=== PATIENT | male | born 1980 | race Caucasian/White ===

== ENCOUNTER 2021-06-01 22:45 | Inpatient (IN) | payer OTHER, SELFPAY ==
[2021-06-01 22:46] VITALS: BP 88/47; PULSE 63; RESP 25; O2SAT 95
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
[2021-06-01] MEDS: sodium chloride 0.9% 1,000 ML 999 ML IV (22:55)
[2021-06-01 23:00] LABS: Basophils # 0.1 10^3/uL (0.0-0.1); Basophils % 0.7 %; Eosinophils # 0.3 10^3/uL (0.0-0.8); Eosinophils % 3.9 %; Hematocrit 42.6 % (42.0-52.0); Hemoglobin 14.3 g/dL (11.7-16.6); Lymphocytes # 3.7 10^3/uL (0.8-4.8); Lymphocytes % 48.5 %; Mean Corpuscular HGB Conc 33.6 g/dL (30.0-36.0); Mean Corpuscular Hemoglobin 30.2 pg (28.0-34.0); Mean Corpuscular Volume 89.9 fl (80-94); Mean Platelet Volume 9.9 fL (7.4-10.4); Monocytes # 0.4 10^3/uL (0.2-0.9); Neutrophils # 3.12 10^3/uL (1.8-7.7); Nucleated Red Blood Cells % 0 %; Platelet Count 267 10^3/cmm (130-400); Red Blood Count 4.74 10^6/uL (4.1-5.3); White Blood Count 7.6 10^3/uL (4.0-10.0)
--- NOTE | 2021-06-01 23:02 | XRR_ITS ---
PROCEDURE INFORMATION: Exam: XR Chest Exam date and time: 06/01/2021 11:02 PM Age: 41 years old Clinical indication: Device placement; Ett placement (vent status); Patient HX: Check S/P ett placement. ; Additional info: Post intubation TECHNIQUE: Imaging protocol: XR of the chest. Views: 1 view. COMPARISON: CR XR chest 1V portable [id number] 2021-06-01 22:51 FINDINGS: Tubes, catheters and devices: Endotracheal tube tip in mid trachea. Lungs: Left lung base subsegmental atelectasis. Pleural spaces: Unremarkable. No pleural effusion. No pneumothorax. Heart/Mediastinum: Unremarkable. No cardiomegaly. Bones/joints: Unremarkable. XR/XR chest 1V portable [id number] IMPRESSION: Endotracheal tube tip in mid trachea.
[2021-06-01 23:14] LABS: Alanine Aminotransferase 73 U/L (0-41); Albumin Level 3.9 g/dL (3.5-5.2); Alcohol Level 190 mg/dL (0-10); Alkaline Phosphatase 105 IU/L (40-130); Anion Gap 18.1 (5-19); Aspartate Amino Transferase 51 U/L (0-40); Blood Urea Nitrogen 9 mg/dL (6-20); Calcium 8.1 mg/dL (8.5-10.5); Carbon Dioxide 23 mmol/L (22-29); Chloride 102 mmol/L (98-107); Globulin 3.3 g/dL (1.3-4.6); Glomerular Filtration Rate 74.1 mL/min (90-130); Glucose 122 mg/dL (65-115); Osmolality Calculated 290 mOsm/kg (285-295); Potassium 3.1 mmol/L (3.5-5.1); Sodium 140 mmol/L (136-145); Total Bilirubin 0.3 mg/dL (0.15-1.2); Total Protein 7.2 g/dL (6.6-8.7)
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
[2021-06-01 23:40] VITALS: RESP 14
[2021-06-01] MEDS: ceFAZolin 1,000 mg SDV 1000 MG IVP (23:48)
[2021-06-01] MEDS: tetanus-dipt-pertussis 0.5 mL SDV IM (23:48)
[2021-06-02] VITALS (89 sets, daily range): BP systolic 53–147; BP diastolic 34–109; PULSE 60–145; RESP 14–26; TEMP 36.7–37.1; O2SAT 93–100
[2021-06-02 00:29] LABS: INR 1.15 (0.8-1.2)
[2021-06-02 00:49] LABS: ABG PCO2 46.5 mmHg (35-45); Alveolar-Arterial Oxygen Gradi 71.9 mmHg (5-10); Arterial Blood Gas Hematocrit 38.4 % (42-52); Blood Gas Operator Identificat JB; Blood Gas Sample Type Arterial; Carboxyhemoglobin 0.5 %THgb (0.4-20.1); HGB O2 Sat 94.4 % (95-100); Ionized Calcium Level - ABG 1.5 mmol/L (1.1-1.4); Oxygen Device VENT; Oxygen Saturation ABG 95.9; PO2 ABG 93.6 mmHg (80.0-100.0); Potassium Level - ABG 3.7 mmol/L (3.5-5.0); Total Hemoglobin 12.5 g/dL (14-18)
[2021-06-02 00:50] LABS: ABG PH Result 7.12 (7.35-7.45)
[2021-06-02 01:11] LABS: Lactate (Lactic Acid level) 7.2 mmol/L (0.5-2.2)
--- NOTE | 2021-06-02 01:16 | XRR_ITS ---
PROCEDURE INFORMATION: Exam: XR Abdomen Exam date and time: 06/02/2021 1:16 AM Age: 41 years old Clinical indication: Screening exam; Post surgical status; Emergency exploratory with splenectomy. ; Patient HX: Sponge count check immediate S/P exploratory surgery with splenectomy. ; Additional info: Portable for sponge count TECHNIQUE: Imaging protocol: XR of the abdomen. Views: Frontal supine view of the abdomen. 1 View. COMPARISON: 1. CT chest abd pel w con* 2021-06-01 23:22 2. CR XR chest 1V portable [id number] 2021-06-01 23:02 3. CR XR chest 1V portable [id number] 2021-06-01 22:51 FINDINGS: Tubes, catheters and devices: Drainage catheter in the left upper abdomen. Oral gastric tube tip and sidehole are within the stomach. A balloon bladder catheter is present. Right groin central venous catheter tip at S1. Lungs: Left lung base subsegmental atelectasis. Gastrointestinal tract: Normal. No bowel dilation. Intraperitoneal space: Gas foci in the left upper abdomen. Splenectomy. Bones/joints: Unremarkable. XR/XR abdomen 1V* [id number] IMPRESSION: Drainage catheter in the left upper abdomen. No visible sponges. Expected postop splenectomy following trauma.
--- NOTE | 2021-06-02 01:34 | ANES.PREANE2 ---
Pre-Anesthetic Assessment Pre-Anesthetic Assessment: Height/Weight: Weight 108.862 kg Pulse Resp BP Pulse Ox 63 14 88/47 95 06/01/21 22:46 06/01/21 23:40 06/01/21 22:46 06/01/21 22:46 Proposed Procedure: Operation Date: 06/02/21 00:00 Proposed Procedures p Exploratory Laparotomy(Not Applicable) - Billy Salazar MD Was Beta Eula taken within 24 hours: N/A Was Clonidine taken within 24 hours: N/A Social: Social History: Alcohol Exam: Additional Exam Findings (including area of procedure): Sedated and intubated from ED Airway: Additional comments: ETT + ETCO2 CV/HEM: Comments: Hypotensive, recieved 6 units PRBC in ED Metabolic: Metabolic: Morbid obesity Anesthetic Plan: ASA status: 4E Anesthesia: General Other: CVL (placed in ED, right groin), A.line Risk of > 500 ml blood loss (7ml/kg in children): Yes, adequate IV access and fluids planned Data Anesthesia CBC & Chem 7: 06/01/21 22:54 06/01/21 22:54 Other Labs: Laboratory Results - last 48 hr 06/01/21 06/01/21 06/01/21 22:54 22:54 23:40 WBC 7.6 RBC 4.74 Hgb 14.3 Hct 42.6 MCV 89.9 MCH 30.2 MCHC 33.6 RDW 12.0 L Plt Count 267 MPV 9.9 Neut % (Auto) 41.0 Lymph % (Auto) 48.5 [place] % (Auto) 5.0 Eos % (Auto) 3.9 Baso % (Auto) 0.7 Neut # (Auto) 3.12 Lymph # (Auto) 3.7 [place] # (Auto) 0.4 Eos # (Auto) 0.3 Baso # (Auto) 0.1 Nucleated RBC % (auto) 0 Nucleated RBCs # 0.0 PT INR Specimen Type ABG pH ABG pCO2 ABG pO2 ABG HCO3 ABG O2 Saturation ABG Base Excess Radames Test A-a O2 Gradient Hematocrit Hgb O2 Saturation Carboxyhemoglobin Methemoglobin Total Hemoglobin Ionized Calcium O2 Delivery Device FiO2 Zipper Machine Operator ID Sodium 140 Potassium 3.1 L Chloride 102 Carbon Dioxide 23 Anion Gap 18.1 BUN 9 Creatinine 1.1 GFR Calculation 74.1 L Glucose 122 H Calculated Osmolality 290 Lactate Calcium 8.1 L Total Bilirubin 0.3 AST 51 H ALT 73 H Alkaline Phosphatase 105 Total Protein 7.2 Albumin 3.9 Globulin 3.3 Ethyl Alcohol 190 H Blood Type A Positive Rho(D) Type Positive Antibody Screen Negative Crossmatch See Detail 06/01/21 06/02/21 06/02/21 Unknown 00:04 00:04 WBC RBC Hgb Hct MCV MCH MCHC RDW Plt Count MPV Neut % (Auto) Lymph % (Auto) [place] % (Auto) Eos % (Auto) Baso % (Auto) Neut # (Auto) Lymph # (Auto) [place] # (Auto) Eos # (Auto) Baso # (Auto) Nucleated RBC % (auto) Nucleated RBCs # PT 15.00 H INR 1.15 Specimen Type ABG pH ABG pCO2 ABG pO2 ABG HCO3 ABG O2 Saturation ABG Base Excess Radames Test A-a O2 Gradient Hematocrit Hgb O2 Saturation Carboxyhemoglobin Methemoglobin Total Hemoglobin Ionized Calcium O2 Delivery Device FiO2 Zipper Machine Operator ID Sodium Potassium Chloride Carbon Dioxide Anion Gap BUN Creatinine GFR Calculation Glucose Calculated Osmolality Lactate Cancelled 7.2 H* Calcium Total Bilirubin AST ALT Alkaline Phosphatase Total Protein Albumin Globulin Ethyl Alcohol Blood Type Rho(D) Type Antibody Screen Crossmatch 06/02/21 00:35 WBC RBC Hgb Hct MCV MCH MCHC RDW Plt Count MPV Neut % (Auto) Lymph % (Auto) [place] % (Auto) Eos % (Auto) Baso % (Auto) Neut # (Auto) Lymph # (Auto) [place] # (Auto) Eos # (Auto) Baso # (Auto) Nucleated RBC % (auto) Nucleated RBCs # PT INR Specimen Type Arterial ABG pH 7.12 L* ABG pCO2 46.5 H ABG pO2 93.6 ABG HCO3 15.0 L ABG O2 Saturation 95.9 ABG Base Excess -14.0 L Radames Test N/a A-a O2 Gradient 71.9 H Hematocrit 38.4 L Hgb O2 Saturation 94.4 L Carboxyhemoglobin 0.5 Methemoglobin 1.0 Total Hemoglobin 12.5 L Ionized Calcium 1.5 H O2 Delivery Device Vent FiO2 100.0 Zipper Machine Operator ID Philip Sodium 140.0 Potassium 3.7 Chloride Carbon Dioxide Anion Gap BUN Creatinine GFR Calculation Glucose 245.0 H Calculated Osmolality Lactate Calcium Total Bilirubin AST ALT Alkaline Phosphatase Total Protein Albumin Globulin Ethyl Alcohol Blood Type Rho(D) Type Antibody Screen Crossmatch Cardiac Studies: No Data to Display
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
--- NOTE | 2021-06-02 02:14 | PC.NURSE ---
pt arrived at [facility] from [facility] with no iv access, no c-collar, and only zofran given. pt refused all of interventions offered by ems. pt had vomit on his [place] and shirt. pt was combative when it came to his care, ex pt pulled off c collar we placed, pt was pulling arm while we started ivs. pt did not want to sit still for xrays. so dr briones ordered 20 atomadate, and 100 of succs, at 2258 meds were pushed and intubated started. positive color change on co2 detector and measured 25 @ the lip. also were unable to obtain a pressure on pt initially. pt intial pressures were 90's / 50's. 2 liters of fluid/ during ct brought blood pressure to 108/76. fentanyl drip started at this time at 50 mcg/hr per protocol. decision was made based on pt bp that we would not start propofol and instead give 200 mg of ketamine. pt pressures then began going back down to 90's / 50's then 70'/40's. at this time it was decided to start blood. pt was given 4 units of o neg and then 2 units of pt specific, one unit of ffp. catheter placed. urine return. clear, yellow- specimen sent to lab. og placed by curtis florence. it was determined during bp checks pt was not stable enough for transfer. pt central line was initiated. pt taken to or by this nurse, eliana miles rn, glen rn, and simba RT
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
--- NOTE | 2021-06-02 02:38 | PC.NURSE ---
Patient received from OR at 0200. VSS, bedside report received from OR staff. Patient opens eyes at this time, moves all extremities. Not feeling commands at this time. Dr. Ladd bedside and orders received.
--- NOTE | 2021-06-02 02:41 | XRR_ITS ---
PROCEDURE INFORMATION: Exam: XR Chest Exam date and time: 06/02/2021 2:41 AM Age: 41 years old Clinical indication: Shortness of breath; Prior surgery; Surgery date: Post-operative (0-2 days); Surgery type: Emergency splenectomy. ; Patient HX: F/u for intubation. TECHNIQUE: Imaging protocol: XR of the chest. Views: 1 view. COMPARISON: CT chest abd pel w con* 06/01/2021 11:22 PM FINDINGS: Tubes, catheters and devices: Stable endotracheal tube with tip over the distal trachea, 1 cm proximal to the venus. Enteric tube tip is over the fundus of the stomach (proximal stomach). Lungs: Unremarkable. No consolidation. Pleural spaces: Unremarkable. No pleural effusion. No pneumothorax. Heart/Mediastinum: Unremarkable. No cardiomegaly. Bones/joints: Unremarkable. XR/XR chest 1V portable [id number] IMPRESSION: 1. Stable endotracheal tube with tip over the distal trachea, 1 cm proximal to the venus. 2. Enteric tube tip is over the fundus of the stomach (proximal stomach).
[2021-06-02 03:06] LABS: Glucose Point of Care 128 mg/dL (70-110)
[2021-06-02] MEDS: D5-NS 0.45% + KCL 20 mEq 20 MEQ/1,000 ML BAG 100 MEQ IV ×3 (03:21→22:46)
[2021-06-02] MEDS: piperacillin-tazobactam 3.375 GM in sodium chloride 0.9% (plus) 50 ML IV ×2 (03:31→16:20)
[2021-06-02 03:47] LABS: ABG PCO2 33.2 mmHg (35-45); ABG PH Result 7.32 (7.35-7.45); Arterial Blood Gas Hematocrit 36.2 % (42-52); Base Excess ABG -7.9 mmol/L (-2.0-2.0); Blood Gas Operator Identificat JB; Blood Gas Sample Type Arterial; Blood Gas Tidal Volume 0.55; HCO3 ABG 17.2 mmol/L (22-26); Oxygen Device VENT
[2021-06-02 06:11] LABS: Lactate (Lactic Acid level) 2.2 mmol/L (0.5-2.2)
[2021-06-02 06:12] LABS: Alanine Aminotransferase 43 U/L (0-41); Albumin Level 2.9 g/dL (3.5-5.2); Alkaline Phosphatase 57 IU/L (40-130); Aspartate Amino Transferase 43 U/L (0-40); Blood Urea Nitrogen 8 mg/dL (6-20); Calcium 6.7 mg/dL (8.5-10.5); Carbon Dioxide 14 mmol/L (22-29); Chloride 114 mmol/L (98-107); Globulin 1.8 g/dL (1.3-4.6); Glomerular Filtration Rate 107.1 mL/min (90-130); Glucose 128 mg/dL (65-115); Osmolality Calculated 300 mOsm/kg (285-295); Sodium 145 mmol/L (136-145); Total Bilirubin 0.8 mg/dL (0.15-1.2); Total Protein 4.7 g/dL (6.6-8.7)
[2021-06-02 06:34] LABS: Anion Gap 21.1 (5-19); Potassium 4.1 mmol/L (3.5-5.1)
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
[2021-06-02 07:35] LABS: Basophils % 0.2 %; Hemoglobin 10.4 g/dL (11.7-16.6); Lymphocytes # 1.7 10^3/uL (0.8-4.8); Lymphocytes % 13.2 %; Mean Corpuscular HGB Conc 34.7 g/dL (30.0-36.0); Mean Corpuscular Hemoglobin 28.8 pg (28.0-34.0); Mean Corpuscular Volume 83.1 fl (80-94); Mean Platelet Volume 10.6 fL (7.4-10.4); Monocytes % 7.9 %; Neutrophils # 10.25 10^3/uL (1.8-7.7); Nucleated Red Blood Cells % 0 %; Platelet Count 183 10^3/cmm (130-400); Red Blood Count 3.61 10^6/uL (4.1-5.3); Red Cell Distribution Width 15.2 % (12.1-15.1); White Blood Count 13.1 10^3/uL (4.0-10.0)
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
[2021-06-02 07:48] LABS: INR 1.13 (0.8-1.2); Partial Thromboplastin Time 23.7 SECONDS (23.9-36.7)
[2021-06-02 07:56] LABS: Alanine Aminotransferase 39 U/L (0-41); Albumin Level 3.1 g/dL (3.5-5.2); Alkaline Phosphatase 58 IU/L (40-130); Blood Urea Nitrogen 9 mg/dL (6-20); Calcium 6.8 mg/dL (8.5-10.5); Carbon Dioxide 18 mmol/L (22-29); Chloride 111 mmol/L (98-107); Globulin 1.7 g/dL (1.3-4.6); Glomerular Filtration Rate 93.5 mL/min (90-130); Glucose 154 mg/dL (65-115); Osmolality Calculated 298 mOsm/kg (285-295); Sodium 143 mmol/L (136-145); Total Protein 4.8 g/dL (6.6-8.7)
[2021-06-02 08:13] LABS: Anion Gap 18.4 (5-19); Aspartate Amino Transferase 37 U/L (0-40); Potassium 4.4 mmol/L (3.5-5.1)
[2021-06-02] MEDS: sodium chloride 0.45% 1,000 ML 999 ML IV (08:23)
--- NOTE | 2021-06-02 08:43 | PC.PT ---
PT eval attempted. Hold at this time due to patient being unstable. Will monitor and attempt again tomorrow.
[2021-06-02] MEDS: sodium chloride 0.9% (100 ml) 100 ML 10 ML ×2 (09:31→09:46)
[2021-06-02] MEDS: sodium bicarbonate 8.4% 1 mEq/mL 50mL Syr 50 MEQ IVP (09:41)
[2021-06-02 09:45] LABS: ABG PCO2 44.6 mmHg (35-45); ABG PH Result 7.35 (7.35-7.45); Alveolar-Arterial Oxygen Gradi 13.7 mmHg (5-10); Arterial Blood Gas Hematocrit 22.3 % (42-52); Base Excess ABG -1.2 mmol/L (-2.0-2.0); Blood Gas Allen Test Pos; Blood Gas Operator Identificat BD; Blood Gas Sample Site ALINE; Blood Gas Sample Type Arterial; Blood Gas Tidal Volume 0.55; Carboxyhemoglobin 0.9 %THgb (0.4-20.1); HCO3 ABG 24.4 mmol/L (22-26); HGB O2 Sat 95.5 % (95-100); Methemoglobin 1.4 % (0.4-1.5); Oxygen Device VENT; Oxygen Saturation ABG 97.7; PO2 ABG 86.2 mmHg (80.0-100.0); Potassium Level - ABG 4.6 mmol/L (3.5-5.0); Total Hemoglobin 7.3 g/dL (14-18)
[2021-06-02] MEDS: phytonadione (ADULT) 10 mg/mL Ampule 1 mL SUBCUT (09:46)
[2021-06-02 10:33] LABS: ABG PH Result 7.41 (7.35-7.45); Alveolar-Arterial Oxygen Gradi 3.1 mmHg (5-10); Arterial Blood Gas Hematocrit 19.5 % (42-52); Base Excess ABG 3.9 mmol/L (-2.0-2.0); Blood Gas Allen Test Pos; Blood Gas Operator Identificat BD; Blood Gas Sample Site ALINE; Blood Gas Sample Type Arterial; Carboxyhemoglobin 1.2 %THgb (0.4-20.1); HCO3 ABG 28.8 mmol/L (22-26); HGB O2 Sat 94.2 % (95-100); Ionized Calcium Level - ABG 1.1 mmol/L (1.1-1.4); Methemoglobin 1.4 % (0.4-1.5); Oxygen Device VENT; Oxygen Saturation ABG 96.8; PO2 ABG 68.4 mmHg (80.0-100.0); Potassium Level - ABG 4.2 mmol/L (3.5-5.0); Total Hemoglobin 6.4 g/dL (14-18)
[2021-06-02 10:49] LABS: Partial Thromboplastin Time 32.3 SECONDS (23.9-36.7)
--- NOTE | 2021-06-02 10:51 | PC.NURSE ---
Patient acutely ill, nurse and nurses at bedside constantly titrating drips, hanging albumin, fluid boluses, and blood to maintain a blood pressure. Father and exwife in to see patient twice briefly. Doctors aware, and then at bedside also, and orders to go back to surgery. OR ney here and assisted nurses, doctor Salazar, and RT to take patient to OR AT [id number].
--- NOTE | 2021-06-02 11:19 | P.ANESUD_ITS ---
Pre-Anesthetic Update Pre-Anesthetic Assessment: Date of Surgery/Procedure: 06/02/21 Proposed Procedure: Operation Date: 06/02/21 00:00 Proposed Procedures p Exploratory Laparotomy(Not Applicable) - Billy Salazar MD Operation Date: 06/02/21 10:00 Proposed Procedures p Exploratory Laparotomy(Not Applicable) - Billy Salazar MD Any changes to Pre-Anesthetic Assessment?: Yes Labs Last 48hrs: Laboratory Results - last 48 hr 06/01/21 06/01/21 06/01/21 22:54 22:54 22:55 WBC 7.6 RBC 4.74 Hgb 14.3 Hct 42.6 MCV 89.9 MCH 30.2 MCHC 33.6 RDW 12.0 L Plt Count 267 MPV 9.9 Neut % (Auto) 41.0 Lymph % (Auto) 48.5 Dundy % (Auto) 5.0 Eos % (Auto) 3.9 Baso % (Auto) 0.7 Neut # (Auto) 3.12 Lymph # (Auto) 3.7 Dundy # (Auto) 0.4 Eos # (Auto) 0.3 Baso # (Auto) 0.1 Nucleated RBC % (a uto) 0 Nucleated RBCs # 0.0 PT INR APTT Specimen Type Sample Site ABG pH ABG pCO2 ABG pO2 ABG HCO3 ABG O2 Saturation ABG Base Excess Radames Test A-a O2 Gradient Hematocrit Hgb O2 Saturation Carboxyhemoglobin Methemoglobin Total Hemoglobin Ionized Calcium O2 Delivery Device FiO2 Tidal Volume PEEP Superintendent Police ID Sodium 140 Potassium 3.1 L Chloride 102 Carbon Dioxide 23 Anion Gap 18.1 BUN 9 Creatinine 1.1 GFR Calculation 74.1 L Glucose 122 H POC Glucose 128 H Calculated Osmolal ity 290 Lactate Calcium 8.1 L Total Bilirubin 0.3 Direct Bilirubin AST 51 H ALT 73 H Alkaline Phosphata se 105 Total Protein 7.2 Albumin 3.9 Globulin 3.3 Ethyl Alcohol 190 H Blood Type Rho(D) Type Antibody Screen Crossmatch 06/01/21 06/01/21 06/02/21 23:40 Unknown 00:04 WBC RBC Hgb Hct MCV MCH MCHC RDW Plt Count MPV Neut % (Auto) Lymph % (Auto) Dundy % (Auto) Eos % (Auto) Baso % (Auto) Neut # (Auto) Lymph # (Auto) Dundy # (Auto) Eos # (Auto) Baso # (Auto) Nucleated RBC % (a uto) Nucleated RBCs # PT 15.00 H INR 1.15 APTT Specimen Type Sample Site ABG pH ABG pCO2 ABG pO2 ABG HCO3 ABG O2 Saturation ABG Base Excess Radames Test A-a O2 Gradient Hematocrit Hgb O2 Saturation Carboxyhemoglobin Methemoglobin Total Hemoglobin Ionized Calcium O2 Delivery Device FiO2 Tidal Volume PEEP Superintendent [employer] ID Sodium Potassium Chloride Carbon Dioxide Anion Gap BUN Creatinine GFR Calculation Glucose POC Glucose Calculated Osmolal ity Lactate Cancelled Calcium Total Bilirubin Direct Bilirubin AST ALT Alkaline Phosphata se Total Protein Albumin Globulin Ethyl Alcohol Blood Type A Positive Rho(D) Type Positive Antibody Screen Negative Crossmatch See Detail 06/02/21 06/02/21 06/02/21 00:04 00:35 03:35 WBC RBC Hgb Hct MCV MCH MCHC RDW Plt Count MPV Neut % (Auto) Lymph % (Auto) Dundy % (Auto) Eos % (Auto) Baso % (Auto) Neut # (Auto) Lymph # (Auto) Dundy # (Auto) Eos # (Auto) Baso # (Auto) Nucleated RBC % (a uto) Nucleated RBCs # PT INR APTT Specimen Type Arterial Arterial Sample Site ABG pH 7.12 L* 7.32 L ABG pCO2 46.5 H 33.2 L ABG pO2 93.6 281.0 H ABG HCO3 15.0 L 17.2 L ABG O2 Saturation 95.9 ABG Base Excess -14.0 L -7.9 L Radames Test N/a N/a A-a O2 Gradient 71.9 H Hematocrit 38.4 L 36.2 L Hgb O2 Saturation 94.4 L Carboxyhemoglobin 0.5 Methemoglobin 1.0 Total Hemoglobin 12.5 L Ionized Calcium 1.5 H O2 Delivery Device Vent Vent FiO2 100.0 80.0 Tidal Volume 0.55 PEEP 8.0 Superintendent Police ID Philip Philip Sodium 140.0 Potassium 3.7 Chloride Carbon Dioxide Anion Gap BUN Creatinine GFR Calculation Glucose 245.0 H POC Glucose Calculated Osmolal ity Lactate 7.2 H* Calcium Total Bilirubin Direct Bilirubin AST ALT Alkaline Phosphata se Total Protein Albumin Globulin Ethyl Alcohol Blood Type Rho(D) Type Antibody Screen Crossmatch 06/02/21 06/02/21 06/02/21 03:55 03:55 03:55 WBC RBC Hgb Hct MCV MCH MCHC RDW Plt Count MPV Neut % (Auto) Lymph % (Auto) Dundy % (Auto) Eos % (Auto) Baso % (Auto) Neut # (Auto) Lymph # (Auto) Dundy # (Auto) Eos # (Auto) Baso # (Auto) Nucleated RBC % (a uto) Nucleated RBCs # PT INR APTT Specimen Type Sample Site ABG pH ABG pCO2 ABG pO2 ABG HCO3 ABG O2 Saturation ABG Base Excess Radames Test A-a O2 Gradient Hematocrit Hgb O2 Saturation Carboxyhemoglobin Methemoglobin Total Hemoglobin Ionized Calcium O2 Delivery Device FiO2 Tidal Volume PEEP Superintendent [employer] ID Sodium 145 Potassium 4.1 Chloride 114 H Carbon Dioxide 14 L Anion Gap 21.1 H BUN 8 Creatinine 0.8 GFR Calculation 107.1 Glucose 128 H POC Glucose Calculated Osmolal ity 300 H Lactate 2.2 Calcium 6.7 L Total Bilirubin 0.8 Direct Bilirubin 0.30 AST 43 H ALT 43 H Alkaline Phosphata se 57 Total Protein 4.7 L D Albumin 2.9 L Globulin 1.8 Ethyl Alcohol Blood Type A Positive Rho(D) Type Positive Antibody Screen Negative Crossmatch See Detail 06/02/21 06/02/21 06/02/21 07:18 07:18 07:18 WBC 13.1 H RBC 3.61 L Hgb 10.4 L Hct 30.0 L MCV 83.1 D MCH 28.8 MCHC 34.7 RDW 15.2 H Plt Count 183 D MPV 10.6 H Neut % (Auto) 78.0 Lymph % (Auto) 13.2 Dundy % (Auto) 7.9 Eos % (Auto) 0.0 Baso % (Auto) 0.2 Neut # (Auto) 10.25 H Lymph # (Auto) 1.7 Dundy # (Auto) 1.0 H Eos # (Auto) 0.0 Baso # (Auto) 0.0 Nucleated RBC % (a uto) 0 Nucleated RBCs # 0.0 PT 14.80 INR 1.13 APTT 23.7 L Specimen Type Sample Site ABG pH ABG pCO2 ABG pO2 ABG HCO3 ABG O2 Saturation ABG Base Excess Radames Test A-a O2 Gradient Hematocrit Hgb O2 Saturation Carboxyhemoglobin Methemoglobin Total Hemoglobin Ionized Calcium O2 Delivery Device FiO2 Tidal Volume PEEP Superintendent [employer] ID Sodium 143 Potassium 4.4 Chloride 111 H Carbon Dioxide 18 L Anion Gap 18.4 BUN 9 Creatinine 0.9 GFR Calculation 93.5 Glucose 154 H POC Glucose Calculated Osmolal ity 298 H Lactate Calcium 6.8 L Total Bilirubin 1.0 Direct Bilirubin AST 37 ALT 39 Alkaline Phosphata se 58 Total Protein 4.8 L Albumin 3.1 L Globulin 1.7 Ethyl Alcohol Blood Type Rho(D) Type Antibody Screen Crossmatch 06/02/21 06/02/21 08:34 10:30 WBC RBC Hgb Hct MCV MCH MCHC RDW Plt Count MPV Neut % (Auto) Lymph % (Auto) Dundy % (Auto) Eos % (Auto) Baso % (Auto) Neut # (Auto) Lymph # (Auto) Dundy # (Auto) Eos # (Auto) Baso # (Auto) Nucleated RBC % (a uto) Nucleated RBCs # PT 18.50 H INR 1.50 H APTT 32.3 Specimen Type Arterial Sample Site Elle ABG pH 7.35 ABG pCO2 44.6 ABG pO2 86.2 ABG HCO3 24.4 ABG O2 Saturation 97.7 ABG Base Excess -1.2 Radames Test Pos A-a O2 Gradient 13.7 H Hematocrit 22.3 L Hgb O2 Saturation 95.5 Carboxyhemoglobin 0.9 Methemoglobin 1.4 Total Hemoglobin 7.3 L Ionized Calcium 1.0 L O2 Delivery Device Vent FiO2 35.0 Tidal Volume 0.55 PEEP 6.0 Superintendent Police ID Bd Sodium 144.0 H Potassium 4.6 Chloride Carbon Dioxide Anion Gap BUN Creatinine GFR Calculation Glucose 174.0 H POC Glucose Calculated Osmolal ity Lactate Calcium Total Bilirubin Direct Bilirubin AST ALT Alkaline Phosphata se Total Protein Albumin Globulin Ethyl Alcohol Blood Type Rho(D) Type Antibody Screen Crossmatch Vitals: Temperature 98.7 F 06/02/21 09:37 Temperature Source Axillary 06/02/21 09:37 Pulse Rate 135 H 06/02/21 09:37 Pulse Rhythm 06/02/21 09:37 Pulse Strength 3+ Normal 06/02/21 08:00 Respiratory Rate 15 06/02/21 09:37 Respiratory Effort 06/02/21 09:37 Respiratory Depth Normal 06/02/21 09:37 Respiratory Patter n 06/02/21 09:23 Blood Pressure 53/34 06/02/21 09:37 Blood Pressure Fabiana n 40 06/02/21 09:37 Blood Pressure Pos ition Supine 06/02/21 06:32 Pulse Oximetry 96 06/02/21 09:37 Oxygen Delivery Me thod 06/02/21 03:30 Fraction of Inspir ed Oxygen 35 06/02/21 08:00 Sepsis Recent Feve r Within 48 Hours No 06/01/21 22:46 Exam: Additional Exam Findings (including area of procedure): Contd bleeding through the night, transfused 4 units RBC, intubated and sedated to OR Cardiac Studies: Echocardiogram Limited Views 06/02/21
--- NOTE | 2021-06-02 11:48 | XRR_ITS ---
PROCEDURE INFORMATION: Exam: XR Abdomen Exam date and time: 06/02/2021 11:48 AM Age: 41 years old Clinical indication: Screening exam; Post surgical status; Emergent surgery; Prior surgery; Surgery date: Post-operative (0-2 days); Patient HX: Needle count; Additional info: Emergent surgery, no count prior to incision, or 6 TECHNIQUE: Imaging protocol: XR of the abdomen. Views: Frontal supine view of the abdomen. 1 View. COMPARISON: CR XR abdomen 1V* [id number] 06/02/2021 1:20 AM FINDINGS: Tubes, catheters and devices: A nasogastric tube is present and projects on the stomach. Surgical drains are present in the left upper quadrant. A right femoral catheter is present with the tip projecting the right side of the sacrum. Multiple skin paul are present in the midline incision. No other significant foreign bodies or needles are seen. Gastrointestinal tract: Normal. No bowel dilation. Bones/joints: Unremarkable. XR/XR abdomen 1V* [id number] IMPRESSION: No acute abnormality. No unusual foreign bodies are seen.
--- NOTE | 2021-06-02 12:38 | XRR_ITS ---
PROCEDURE INFORMATION: Exam: XR Chest Exam date and time: 06/02/2021 12:38 PM Age: 41 years old Clinical indication: Device placement; Prior surgery; Additional info: Intubated TECHNIQUE: Imaging protocol: XR of the chest. Views: 1 view. COMPARISON: CR (CHEST, ) 06/02/2021 5:57 AM FINDINGS: Tubes, catheters and devices: An endotracheal tube and nasogastric tube project in satisfactory position. Lungs: There is hazy right upper lobe atelectasis or infiltrate. The other lung zones are clear. Pleural spaces: Unremarkable. No pleural effusion. No pneumothorax. Heart/Mediastinum: Unremarkable. No cardiomegaly. Bones/joints: Unremarkable. XR/XR chest 1V portable [id number] IMPRESSION: There is hazy right upper lobe atelectasis which is similar to the previous study.
[2021-06-02] MEDS: dexmedeTOMIDine 0.9 % NaCL 400 MCG/100 ML PREMIX 5.44 MCG IV (12:40)
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
--- NOTE | 2021-06-02 13:51 | ANE.PACU2 ---
Inpatient post-anesthesia follow up: Airway intact: Yes (ETT) Vital signs: Temperature 98.7 F Pulse Rate 135 Respiratory Rate 14 Blood Pressure 53/34 Pulse Oximetry 97 Oxygen Delivery Me thod Mechanical Ventila tion Oxygen Flow Rate Fraction of Inspir ed Oxygen 35 Hydration adequate: Yes Nausea and vomiting: No Pain level: Other (Unable to determine secondary to sedation) Additional Comments: Intubated/sedated to ICU, stable on pressors
[2021-06-02 13:54] LABS: Basophils % 0.2 %; Eosinophils # 0.1 10^3/uL (0.0-0.8); Eosinophils % 0.5 %; Hematocrit 32.8 % (42.0-52.0); Hemoglobin 11.4 g/dL (11.7-16.6); Lymphocytes # 1.3 10^3/uL (0.8-4.8); Lymphocytes % 10.4 %; Mean Corpuscular HGB Conc 34.8 g/dL (30.0-36.0); Mean Corpuscular Hemoglobin 30.2 pg (28.0-34.0); Mean Platelet Volume 10.8 fL (7.4-10.4); Monocytes # 1.4 10^3/uL (0.2-0.9); Monocytes % 11.3 %; Neutrophils # 9.78 10^3/uL (1.8-7.7); Nucleated Red Blood Cells % 0 %; Platelet Count 108 10^3/cmm (130-400); Red Blood Count 3.77 10^6/uL (4.1-5.3); Red Cell Distribution Width 14.2 % (12.1-15.1); White Blood Count 12.7 10^3/uL (4.0-10.0)
[2021-06-02 13:58] LABS: INR 1.24 (0.8-1.2)
[2021-06-02 14:08] LABS: Alanine Aminotransferase 31 U/L (0-41); Albumin Level 2.6 g/dL (3.5-5.2); Alkaline Phosphatase 44 IU/L (40-130); Anion Gap 14.5 (5-19); Aspartate Amino Transferase 40 U/L (0-40); Blood Urea Nitrogen 10 mg/dL (6-20); Calcium 6.4 mg/dL (8.5-10.5); Carbon Dioxide 20 mmol/L (22-29); Chloride 117 mmol/L (98-107); Globulin 1.5 g/dL (1.3-4.6); Glomerular Filtration Rate 82.8 mL/min (90-130); Glucose 128 mg/dL (65-115); Osmolality Calculated 305 mOsm/kg (285-295); Potassium 4.5 mmol/L (3.5-5.1); Sodium 147 mmol/L (136-145); Total Bilirubin 1.9 mg/dL (0.15-1.2); Total Protein 4.1 g/dL (6.6-8.7)
--- NOTE | 2021-06-02 14:34 | PC.NURSE ---
1238 patient returned form OR with OR staff and dr eaton. Orders to place back on fentanyl and precedex for pain and sedation, and may add Levophed back to keep a mean pressure of 65-70, but to keep comfortable. Started Precedex and Fentanyl as ordered, titrated pressures for appropriate mean.
[2021-06-02] MEDS: phenylephrine inj 25 MG in sodium chloride 0.9% 250 ML 36.36 MG IV (15:38)
[2021-06-02] MEDS: dexmedeTOMIDine 0.9 % NaCL 400 MCG/100 ML PREMIX 16.33 MCG IV (18:03)
[2021-06-02 19:47] LABS: Basophils % 0.2 %; Hematocrit 28.8 % (42.0-52.0); Lymphocytes # 1.2 10^3/uL (0.8-4.8); Lymphocytes % 8.3 %; Mean Corpuscular HGB Conc 34.7 g/dL (30.0-36.0); Mean Corpuscular Hemoglobin 29.7 pg (28.0-34.0); Mean Corpuscular Volume 85.5 fl (80-94); Mean Platelet Volume 10.7 fL (7.4-10.4); Monocytes # 1.6 10^3/uL (0.2-0.9); Monocytes % 11.1 %; Neutrophils # 11.63 10^3/uL (1.8-7.7); Neutrophils % 80.1 %; Nucleated Red Blood Cells % 0 %; Platelet Count 219 10^3/cmm (130-400); Red Blood Count 3.37 10^6/uL (4.1-5.3); Red Cell Distribution Width 14.2 % (12.1-15.1); White Blood Count 14.5 10^3/uL (4.0-10.0)
[2021-06-02 20:02] LABS: Alanine Aminotransferase 28 U/L (0-41); Albumin Level 2.7 g/dL (3.5-5.2); Alkaline Phosphatase 45 IU/L (40-130); Anion Gap 13.3 (5-19); Aspartate Amino Transferase 34 U/L (0-40); Blood Urea Nitrogen 10 mg/dL (6-20); Calcium 6.5 mg/dL (8.5-10.5); Carbon Dioxide 23 mmol/L (22-29); Chloride 113 mmol/L (98-107); Globulin 1.7 g/dL (1.3-4.6); Glomerular Filtration Rate 74.1 mL/min (90-130); Glucose 144 mg/dL (65-115); Osmolality Calculated 302 mOsm/kg (285-295); Potassium 4.3 mmol/L (3.5-5.1); Sodium 145 mmol/L (136-145); Total Bilirubin 0.9 mg/dL (0.15-1.2); Total Protein 4.4 g/dL (6.6-8.7)
[2021-06-03] VITALS (59 sets, daily range): BP systolic 90–127; BP diastolic 59–84; PULSE 60–76; RESP 14–16; TEMP 36.7; O2SAT 84–98
[2021-06-03] MEDS: piperacillin-tazobactam 3.375 GM in sodium chloride 0.9% (plus) 50 ML IV ×3 (01:36→17:46)
[2021-06-03] MEDS: dexmedeTOMIDine 0.9 % NaCL 400 MCG/100 ML PREMIX 16.33 MCG IV ×3 (01:41→18:12)
[2021-06-03 02:47] LABS: Basophils # 0.1 10^3/uL (0.0-0.1); Basophils % 0.3 %; Eosinophils # 0.1 10^3/uL (0.0-0.8); Eosinophils % 0.3 %; Hematocrit 26.9 % (42.0-52.0); Hemoglobin 9.4 g/dL (11.7-16.6); Lymphocytes # 1.7 10^3/uL (0.8-4.8); Lymphocytes % 7.9 %; Mean Corpuscular HGB Conc 34.9 g/dL (30.0-36.0); Mean Corpuscular Hemoglobin 29.7 pg (28.0-34.0); Mean Corpuscular Volume 85.1 fl (80-94); Mean Platelet Volume 11.2 fL (7.4-10.4); Monocytes # 2.2 10^3/uL (0.2-0.9); Monocytes % 10.6 %; Neutrophils # 16.91 10^3/uL (1.8-7.7); Neutrophils % 80.1 %; Nucleated Red Blood Cells % 0 %; Platelet Count 236 10^3/cmm (130-400); Red Blood Count 3.16 10^6/uL (4.1-5.3); Red Cell Distribution Width 14.4 % (12.1-15.1); White Blood Count 21.1 10^3/uL (4.0-10.0)
[2021-06-03 03:03] LABS: INR 1.12 (0.8-1.2)
[2021-06-03 03:04] LABS: Alanine Aminotransferase 25 U/L (0-41); Albumin Level 2.6 g/dL (3.5-5.2); Alkaline Phosphatase 82 IU/L (40-130); Anion Gap 10.9 (5-19); Aspartate Amino Transferase 28 U/L (0-40); Blood Urea Nitrogen 11 mg/dL (6-20); Calcium 6.6 mg/dL (8.5-10.5); Carbon Dioxide 24 mmol/L (22-29); Chloride 112 mmol/L (98-107); Glomerular Filtration Rate 93.5 mL/min (90-130); Glucose 142 mg/dL (65-115); Lactic Sepsis W/Reflex 1.6 mmol/L (0.5-2.2); Osmolality Calculated 298 mOsm/kg (285-295); Potassium 3.9 mmol/L (3.5-5.1); Sodium 143 mmol/L (136-145); Total Bilirubin 0.6 mg/dL (0.15-1.2); Total Protein 4.6 g/dL (6.6-8.7)
[2021-06-03 03:05] LABS: Partial Thromboplastin Time 29.9 SECONDS (23.9-36.7)
[2021-06-03 03:13] LABS: Fibrinogen 413 mg/dL (174-498)
[2021-06-03 03:34] LABS: Platelet Count 236 10^3/cmm (130-400)
--- NOTE | 2021-06-03 06:23 | PC.NURSE ---
Patients hemoglobin slowly dropping from previous shift. Will update surgeon during rounding. V/S stable
[2021-06-03 06:39] LABS: Basophils # 0.1 10^3/uL (0.0-0.1); Basophils % 0.3 %; Hemoglobin 8.9 g/dL (11.7-16.6); Lymphocytes # 1.8 10^3/uL (0.8-4.8); Lymphocytes % 7.9 %; Mean Corpuscular HGB Conc 35.6 g/dL (30.0-36.0); Mean Corpuscular Hemoglobin 29.9 pg (28.0-34.0); Mean Corpuscular Volume 83.9 fl (80-94); Mean Platelet Volume 11.1 fL (7.4-10.4); Monocytes # 2.1 10^3/uL (0.2-0.9); Monocytes % 9.3 %; Neutrophils # 18.31 10^3/uL (1.8-7.7); Neutrophils % 81.7 %; Nucleated Red Blood Cells % 0.1 %; Platelet Count 233 10^3/cmm (130-400); Red Blood Count 2.98 10^6/uL (4.1-5.3); Red Cell Distribution Width 14.4 % (12.1-15.1); White Blood Count 22.4 10^3/uL (4.0-10.0)
[2021-06-03] MEDS: D5-NS 0.45% + KCL 20 mEq 20 MEQ/1,000 ML BAG 100 MEQ IV (08:14)
--- NOTE | 2021-06-03 10:10 | XRR_ITS ---
PROCEDURE INFORMATION: Exam: XR Chest Exam date and time: 06/03/2021 10:10 AM Age: 41 years old Clinical indication: Device placement; Ett placement (vent status); Additional info: On vent TECHNIQUE: Imaging protocol: XR of the chest. Views: 1 view. COMPARISON: CR (CHEST, ) 06/02/2021 1:04 PM FINDINGS: Tubes, catheters and devices: An endotracheal tube and nasogastric tube project in satisfactory position. Lungs: There are worsening infiltrates and opacity of the left lung base. Pleural spaces: Unremarkable. No pleural effusion. No pneumothorax. Heart/Mediastinum: Unremarkable. No cardiomegaly. Bones/joints: Unremarkable. XR/XR chest 1V portable [id number] IMPRESSION: Worsening pneumonia in the left lung base.
[2021-06-03] MEDS: FUROsemide 10 mg/mL SDV 2mL 20 MG IVP (10:53)
[2021-06-03] MEDS: albumin 12.5 GM/50 ML VIAL IV (10:53)
[2021-06-03] MEDS: ipratropium-albuterol 3 mL Neb INHALATION ×4 (12:01→23:01)
--- NOTE | 2021-06-03 12:16 | PC.PT ---
Physical therapy evaluation on hold today per nursing request at this time.
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
[2021-06-04] VITALS (70 sets, daily range): BP systolic 85–142; BP diastolic 54–88; PULSE 75–106; RESP 16–22; TEMP 36.6; O2SAT 72–97
[2021-06-04] MEDS: morphine 4 mg/mL SDV 1 mL 3 MG IVP ×4 (00:07→06:09)
[2021-06-04] MEDS: piperacillin-tazobactam 3.375 GM in sodium chloride 0.9% (plus) 50 ML IV ×3 (02:11→17:42)
[2021-06-04] MEDS: dexmedeTOMIDine 0.9 % NaCL 400 MCG/100 ML PREMIX 10.89 MCG IV ×2 (02:58→15:28)
[2021-06-04] MEDS: ipratropium-albuterol 3 mL Neb INHALATION ×6 (03:38→23:41)
[2021-06-04 04:15] LABS: ABG PCO2 43.9 mmHg (35-45); ABG PH Result 7.38 (7.35-7.45); Alveolar-Arterial Oxygen Gradi 28.6 mmHg (5-10); Arterial Blood Gas Hematocrit 28.8 % (42-52); Base Excess ABG 0.5 mmol/L (-2.0-2.0); Blood Gas Allen Test Pos; Blood Gas Sample Site Radial, right; Blood Gas Sample Type Arterial; Carboxyhemoglobin 0.8 %THgb (0.4-20.1); HCO3 ABG 25.9 mmol/L (22-26); HGB O2 Sat 88.3 % (95-100); Ionized Calcium Level - ABG 1.1 mmol/L (1.1-1.4); Methemoglobin 0.6 % (0.4-1.5); Oxygen Device VENT; Oxygen Saturation ABG 89.5; PO2 ABG 51.1 mmHg (80.0-100.0); Potassium Level - ABG 3.4 mmol/L (3.5-5.0); Total Hemoglobin 9.4 g/dL (14-18)
[2021-06-04 04:32] LABS: Alanine Aminotransferase 24 U/L (0-41); Albumin Level 2.6 g/dL (3.5-5.2); Alkaline Phosphatase 111 IU/L (40-130); Anion Gap 14.5 (5-19); Aspartate Amino Transferase 26 U/L (0-40); Blood Urea Nitrogen 10 mg/dL (6-20); Calcium 6.9 mg/dL (8.5-10.5); Carbon Dioxide 23 mmol/L (22-29); Chloride 110 mmol/L (98-107); Globulin 2.2 g/dL (1.3-4.6); Glomerular Filtration Rate 93.5 mL/min (90-130); Glucose 117 mg/dL (65-115); Osmolality Calculated 298 mOsm/kg (285-295); Potassium 3.5 mmol/L (3.5-5.1); Sodium 144 mmol/L (136-145); Total Bilirubin 0.3 mg/dL (0.15-1.2); Total Protein 4.8 g/dL (6.6-8.7)
--- NOTE | 2021-06-04 06:00 | XRR_ITS ---
PROCEDURE INFORMATION: Exam: XR Chest Exam date and time: 06/04/2021 6:00 AM Age: 41 years old Clinical indication: Device placement; Ett placement (vent status); Prior surgery; Surgery date: 3-7 days post-operative; Surgery type: Splenectomy; Patient HX: F/u intubation. ; Additional info: Intubated TECHNIQUE: Imaging protocol: XR of the chest. Views: 1 view. COMPARISON: CR (CHEST, ) 06/03/2021 10:26 AM FINDINGS: Tubes, catheters and devices: Endotracheal tube is in satisfactory position. Feeding tube is in satisfactory position. Lungs: Persistent small left pleural effusion with adjacent atelectasis. Pneumonia should be excluded clinically. No pneumothorax. Pleural spaces: See Lungs finding. Heart/Mediastinum: Stable cardiomediastinal silhouette. Bones/joints: Unremarkable. XR/XR chest 1V portable [id number] IMPRESSION: Persistent small left pleural effusion with adjacent atelectasis. Pneumonia should be excluded clinically.
[2021-06-04 06:57] LABS: Basophils # 0.1 10^3/uL (0.0-0.1); Basophils % 0.4 %; Eosinophils # 0.2 10^3/uL (0.0-0.8); Eosinophils % 0.6 %; Hematocrit 24.5 % (42.0-52.0); Hemoglobin 8.4 g/dL (11.7-16.6); Lymphocytes # 1.4 10^3/uL (0.8-4.8); Lymphocytes % 5.1 %; Mean Corpuscular HGB Conc 34.3 g/dL (30.0-36.0); Mean Corpuscular Hemoglobin 30.9 pg (28.0-34.0); Mean Corpuscular Volume 90.1 fl (80-94); Mean Platelet Volume 11.9 fL (7.4-10.4); Monocytes % 7.2 %; Neutrophils # 23.13 10^3/uL (1.8-7.7); Nucleated Red Blood Cells # 0.1 /100WBC; Nucleated Red Blood Cells % 0.2 %; Platelet Count 224 10^3/cmm (130-400); Red Blood Count 2.72 10^6/uL (4.1-5.3); Red Cell Distribution Width 15.5 % (12.1-15.1); White Blood Count 27.2 10^3/uL (4.0-10.0)
--- NOTE | 2021-06-04 09:06 | PC.NUTR ---
TF consult received. Recommend goal rate for Jevity 1.2 of 60 mls/hr. Current TF of 10 mls/hr to be advanced 10 mls/hr as tolerated Q8H with FW flushes of 150 ml Q4H or per MD discretion. See full RD assessment for details.
--- NOTE | 2021-06-04 09:54 | PC.CHAP ---
Pastoral Care Encounter/Spiritual Assessment Type of Contact [] Declined income tax consultant visit [] Patient/Family/Request visit [] Outpatient visit [] Follow-up visit [] Physician referral [] Code/Alert [x] Routine visit [] Staff referral [] Actively dying [] Patient sleeping [x] Family support [] [] Out of room [] Palliative care [] [] Receiving care in room [] Pre-surgical visit [x] Trauma [] Long length of stay [x] ICU visit [] Other: Relational/Emotional Strength [] Patient feels connected with others/family/visitors/staff [] Distress [] Loneliness/isolation [] Abandonment Spirituality of Patient [x] Person of Hellen [] Attends Yazidism of their Hellen [] Believes in Prayer [] Reads Bible or Orthodoxy materials [] There are Spiritual issues to be addressed Funeral Greeter Interventions [x] Prayer [x] Active listening [] Non-anxious presence [] Spiritual/emotional support [] Crisis/trauma care [] Spiritual counseling [] Bereavement support [] Provided bereavement packet [] Provided Bible/devotional materials [] Provided toy/stuffed animal, coloring book to patient or family member [] Provided Communion [] Anointing/[place] [] Salvation [x] Completed spiritual assessment [] Other: Impact on Illness or Injury [] Angry [] Fearful [] Anxious [] Often cries [] Exhaustion [] Unable to work [] Unable to attend oriental orthodox [] Unable to walk/stand [] Unable to read [] Unable to drive [] Unable to eat/drink [] Unable to sleep [] Unable to be with family [] Patient intubated [] Other: Summary spoke with father.. advise him chaplains are available to him 23/12... Time spent with patient 15 min
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
[2021-06-05] VITALS (98 sets, daily range): BP systolic 104–170; BP diastolic 65–94; PULSE 83–108; RESP 16–22; TEMP 37.2–37.7; O2SAT 85–100
[2021-06-05] MEDS: piperacillin-tazobactam 3.375 GM in sodium chloride 0.9% (plus) 50 ML IV ×3 (01:27→16:47)
[2021-06-05] MEDS: dexmedeTOMIDine 0.9 % NaCL 400 MCG/100 ML PREMIX 10.89 MCG IV ×2 (01:28→16:02)
[2021-06-05] MEDS: ipratropium-albuterol 3 mL Neb INHALATION ×5 (03:26→20:33)
[2021-06-05 03:52] LABS: ABG PCO2 44.1 mmHg (35-45); ABG PH Result 7.41 (7.35-7.45); Arterial Blood Gas Hematocrit 22.6 % (42-52); Base Excess ABG 3.2 mmol/L (-2.0-2.0); Blood Gas Allen Test Pos; Blood Gas Sample Site Radial, right; Blood Gas Sample Type Arterial; HCO3 ABG 28.1 mmol/L (22-26); Oxygen Device VENT; PO2 ABG 61.6 mmHg (80.0-100.0)
[2021-06-05 04:14] LABS: Basophils # 0.1 10^3/uL (0.0-0.1); Basophils % 0.4 %; Eosinophils # 0.5 10^3/uL (0.0-0.8); Eosinophils % 2.2 %; Hematocrit 22.1 % (42.0-52.0); Hemoglobin 7.4 g/dL (11.7-16.6); Lymphocytes # 1.6 10^3/uL (0.8-4.8); Lymphocytes % 7.6 %; Mean Corpuscular HGB Conc 33.5 g/dL (30.0-36.0); Mean Corpuscular Hemoglobin 30.1 pg (28.0-34.0); Mean Corpuscular Volume 89.8 fl (80-94); Mean Platelet Volume 11.7 fL (7.4-10.4); Neutrophils # 17.57 10^3/uL (1.8-7.7); Neutrophils % 83.7 %; Nucleated Red Blood Cells # 0.2 /100WBC; Nucleated Red Blood Cells % 0.9 %; Platelet Count 230 10^3/cmm (130-400); Red Blood Count 2.46 10^6/uL (4.1-5.3); Red Cell Distribution Width 15.5 % (12.1-15.1)
[2021-06-05 04:41] LABS: Alanine Aminotransferase 29 U/L (0-41); Albumin Level 2.5 g/dL (3.5-5.2); Alkaline Phosphatase 130 IU/L (40-130); Anion Gap 13.4 (5-19); Aspartate Amino Transferase 57 U/L (0-40); Blood Urea Nitrogen 10 mg/dL (6-20); Calcium 7.1 mg/dL (8.5-10.5); Carbon Dioxide 26 mmol/L (22-29); Chloride 107 mmol/L (98-107); Globulin 2.7 g/dL (1.3-4.6); Glomerular Filtration Rate 93.5 mL/min (90-130); Glucose 114 mg/dL (65-115); Osmolality Calculated 296 mOsm/kg (285-295); Potassium 3.4 mmol/L (3.5-5.1); Sodium 143 mmol/L (136-145); Total Bilirubin 0.2 mg/dL (0.15-1.2); Total Protein 5.2 g/dL (6.6-8.7)
[2021-06-05 05:47] LABS: Magnesium 1.7 mg/dL (1.7-2.3)
[2021-06-05] MEDS: FUROsemide 10 mg/mL SDV 2mL 20 MG IVP (08:49)
[2021-06-05] MEDS: thiamine 100 mg Tablet PO (08:50)
[2021-06-05] MEDS: potassium chloride premix 100 ML 50 MEQ IV (08:50)
[2021-06-05] MEDS: folic acid 1 mg Tablet PO (08:50)
[2021-06-05] MEDS: multivitamin therapeutic Tablet 1 TAB PO (08:50)
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
[2021-06-05] MEDS: sodium chloride 0.9% (100 ml) 100 ML 10 ML (10:40)
--- NOTE | 2021-06-05 15:37 | PC.SOCIAL ---
Pt have court soon, letter for patient drawn up and given to Nurse Perla to give to patients family
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
[2021-06-05] MEDS: lactulose oral liq 20 gm/30 mL UDC 15 GM PO (16:52)
[2021-06-05] MEDS: guaiFENesin 600 mg Tablet 1200 MG PO (16:53)
[2021-06-05] MEDS: norepinephrine 8 MG in dextrose 5 % 500 ML 11.43 MG IV ×2 (18:41→23:00)
[2021-06-05 22:11] LABS: Hemoglobin 8.7 g/dL (11.7-16.6)
[2021-06-06] VITALS (53 sets, daily range): BP systolic 109–136; BP diastolic 59–82; PULSE 78–102; RESP 16–24; TEMP 37.1–37.7; O2SAT 34–98
[2021-06-06] MEDS: ipratropium-albuterol 3 mL Neb INHALATION ×6 (00:39→20:14)
[2021-06-06] MEDS: piperacillin-tazobactam 3.375 GM in sodium chloride 0.9% (plus) 50 ML IV ×3 (01:08→17:42)
[2021-06-06] MEDS: dexmedeTOMIDine 0.9 % NaCL 400 MCG/100 ML PREMIX 10.89 MCG IV ×2 (01:26→14:40)
[2021-06-06 04:39] LABS: Alanine Aminotransferase 32 U/L (0-41); Albumin Level 2.1 g/dL (3.5-5.2); Alkaline Phosphatase 267 IU/L (40-130); Anion Gap 15.1 (5-19); Aspartate Amino Transferase 51 U/L (0-40); Blood Urea Nitrogen 9 mg/dL (6-20); Calcium 7.2 mg/dL (8.5-10.5); Carbon Dioxide 23 mmol/L (22-29); Chloride 105 mmol/L (98-107); Creatinine Clr Calc Pharmacy 141.1802; Globulin 3.1 g/dL (1.3-4.6); Glomerular Filtration Rate 93.5 mL/min (90-130); Glucose 104 mg/dL (65-115); Osmolality Calculated 289 mOsm/kg (285-295); Potassium 3.1 mmol/L (3.5-5.1); Sodium 140 mmol/L (136-145); Total Bilirubin 0.3 mg/dL (0.15-1.2); Total Protein 5.2 g/dL (6.6-8.7)
[2021-06-06 04:48] LABS: Hematocrit 23.9 % (42.0-52.0); Hemoglobin 7.9 g/dL (11.7-16.6); Mean Corpuscular HGB Conc 33.1 g/dL (30.0-36.0); Mean Corpuscular Hemoglobin 29.4 pg (28.0-34.0); Mean Corpuscular Volume 88.8 fl (80-94); Mean Platelet Volume 10.8 fL (7.4-10.4); Platelet Count 260 10^3/cmm (130-400); Red Blood Count 2.69 10^6/uL (4.1-5.3); Red Cell Distribution Width 16.1 % (12.1-15.1); White Blood Count 14.4 10^3/uL (4.0-10.0)
[2021-06-06] MEDS: LORazepam 2 mg/mL INJ 1 mL IVP (05:38)
--- NOTE | 2021-06-06 06:15 | PC.NURSE ---
Shift Note Frequent safety and comfort rounds continue. Orders and/or nursing care completed as indicated. Patient monitored for response to intervention and treatment(s). Education provided includes orientation to situation, medications with side effects. Patient not able to comprehend. Gtt's titrated per protocol. Attempted to wean sedation, patient became extremely agitated, moving all extremities, lifting head off bed but not meaningful. Lines flush but will no long draw blood. [place] and COLE drain patent and draining. Tolerating tube feeds. Will continue to monitor.
[2021-06-06 06:36] LABS: Slide Review Slide Review Perform
[2021-06-06 06:40] LABS: Absolute Eosinophils 0.4 10^3/cmm (0.0-0.7); Absolute Segmented Neutrophil 9.2 10/cmm (1.6-7.1); Band Neutrophils Absolute 0.6 10^3/cmm (0.0-1.2); Eosinophils 3 %; Lymphocytes 25 %; Monocytes Absolute 0.6 10^3/cmm (0.1-0.6); Segmented Neutrophils 64 %; Total Cells Counted 100 (0-100)
[2021-06-06 06:41] LABS: Absolute Neutrophil 9.8 10^3/cmm (1.4-6.5); Lymphocytes Absolute 3.6 10^3/cmm (1.2-3.4); Platelet Estimate Normal (Normal)
[2021-06-06 07:06] LABS: Magnesium 1.9 mg/dL (1.7-2.3)
[2021-06-06] MEDS: folic acid 1 mg Tablet PO (08:32)
[2021-06-06] MEDS: lactulose oral liq 20 gm/30 mL UDC 15 GM PO ×2 (08:32→17:42)
[2021-06-06] MEDS: multivitamin therapeutic Tablet 1 TAB PO (08:32)
[2021-06-06] MEDS: guaiFENesin 600 mg Tablet 1200 MG PO ×2 (08:32→17:43)
[2021-06-06] MEDS: thiamine 100 mg Tablet PO (08:32)
--- NOTE | 2021-06-06 09:03 | PC.NUTR ---
Observed Pt's current TF running @ 45 ml/hr. If medically appropriate, recommend increasing to goal rate of Jevity 1.2 @ 60 mls/hr with FW flushes of 150 ml Q4H or per MD discretion. See full RD assessment for details.
--- NOTE | 2021-06-06 09:16 | PC.CHAP ---
Pastoral Care Encounter/Spiritual Assessment Type of Contact [] Declined aws software development engineer visit [] Patient/Family/Request visit [] Outpatient visit [] Follow-up visit [] Physician referral [] Code/Alert [x] Routine visit [] Staff referral [] Actively dying [] Patient sleeping [x] Family support [] [] Out of room [] Palliative care [] [] Receiving care in room [] Pre-surgical visit [] Trauma [] Long length of stay [x] ICU visit [x] Other: father present.. noted improvement.. possibility of removing vent.. movement in the body Relational/Emotional Strength [] Patient feels connected with others/family/visitors/staff [] Distress [] Loneliness/isolation [] Abandonment Spirituality of Patient [] Person of Hellen [] Attends Sabianist of their Hellen [] Believes in Prayer [] Reads Bible or Buddhism materials [] There are Spiritual issues to be addressed Formation Fracturing Operator Interventions [x] Prayer [] Active listening [] Non-anxious presence [] Spiritual/emotional support [] Crisis/trauma care [] Spiritual counseling [] Bereavement support [] Provided bereavement packet [] Provided Bible/devotional materials [] Provided toy/stuffed animal, coloring book to patient or family member [] Provided Communion [] Anointing/[place] [] Salvation [x] Completed spiritual assessment [] Other: Impact on Illness or Injury [] Angry [] Fearful [] Anxious [] Often cries [] Exhaustion [] Unable to work [] Unable to attend lutheran [] Unable to walk/stand [] Unable to read [] Unable to drive [] Unable to eat/drink [] Unable to sleep [] Unable to be with family [] Patient intubated [] Other: Summary Time spent with patient
[2021-06-06 11:12] LABS: Adenovirus Not Detected (NOT DETECT); Chlamydia Pneumoniae Not Detected (NOT DETECT); Coronavirus 229E,HKU1,NL63,OC4 Not Detected (NOT DETECT); Human Metapneumovirus Not Detected (NOT DETECT); Human Rhinovirus/Enterovirus Not Detected (NOT DETECT); Influenza A Not Detected (NOT DETECT); Influenza A H1 Not Detected (NOT DETECT); Influenza A H1-2009 Not Detected (NOT DETECT); Influenza A H3 Not Detected (NOT DETECT); Influenza B Not Detected (NOT DETECT); Mycoplasma Pneumoniae Not Detected (NOT DETECT); Parainfluenza Virus Type 1 Not Detected (NOT DETECT); Parainfluenza Virus Type 2 Not Detected (NOT DETECT); Parainfluenza Virus Type 3 Not Detected (NOT DETECT); Parainfluenza Virus Type 4 Not Detected (NOT DETECT); Respiratory Syncytial Virus A Not Detected (NOT DETECT); Respiratory Syncytial Virus B Not Detected (NOT DETECT); SARS-COV-2 Not Detected (NOT DETECT)
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
[2021-06-06] MEDS: potassium chloride oral liq 20 mEq/15 mL UDC PO (12:18)
[2021-06-06 12:46] LABS: Hemoglobin 7.7 g/dL (11.7-16.6)
[2021-06-06] MEDS: vancomycin 1,000 MG in sodium chloride 0.9% 250 ML 250 MG IV ×2 (13:49→21:48)
--- NOTE | 2021-06-06 18:41 | PC.NURSE ---
Shift Note Frequent safety and comfort rounds continue. Orders and/or nursing care completed as indicated. Patient monitored for response to intervention and treatment(s). Education provided includes vent education. Patient and/or outside sales representative verbalize understanding. Will continue to monitor.
[2021-06-07] VITALS (47 sets, daily range): BP systolic 110–137; BP diastolic 58–77; PULSE 79–125; RESP 16–40; TEMP 37.1–38.6; O2SAT 84–100
[2021-06-07] MEDS: ipratropium-albuterol 3 mL Neb INHALATION ×6 (00:25→19:52)
[2021-06-07] MEDS: dexmedeTOMIDine 0.9 % NaCL 400 MCG/100 ML PREMIX 10.89 MCG IV (00:51)
[2021-06-07] MEDS: piperacillin-tazobactam 3.375 GM in sodium chloride 0.9% (plus) 50 ML IV ×3 (00:51→17:14)
[2021-06-07] MEDS: vancomycin 1,000 MG in sodium chloride 0.9% 250 ML 250 MG IV ×3 (03:34→19:52)
[2021-06-07 05:28] LABS: Albumin Level 1.6 g/dL (3.5-5.2); Chloride 114 mmol/L (98-107); Sodium 144 mmol/L (136-145)
[2021-06-07 05:45] LABS: Alanine Aminotransferase 37 U/L (0-41); Alkaline Phosphatase 234 IU/L (40-130); Anion Gap 14.6 (5-19); Aspartate Amino Transferase 47 U/L (0-40); Blood Urea Nitrogen 8 mg/dL (6-20); Calcium 6.5 mg/dL (8.5-10.5); Carbon Dioxide 18 mmol/L (22-29); Globulin 2.6 g/dL (1.3-4.6); Glomerular Filtration Rate 149.2 mL/min (90-130); Glucose 102 mg/dL (65-115); Osmolality Calculated 297 mOsm/kg (285-295); Total Bilirubin 0.3 mg/dL (0.15-1.2); Total Protein 4.2 g/dL (6.6-8.7)
[2021-06-07 05:51] LABS: Potassium 2.6 mmol/L (3.5-5.1)
[2021-06-07] MEDS: potassium chloride premix 40 MEQ/100 ML PREMIX 25 MEQ IV (07:16)
[2021-06-07 07:31] LABS: Magnesium 1.6 mg/dL (1.7-2.3); Phosphorus 2.2 mg/dL (2.5-4.5)
[2021-06-07] MEDS: acetaminophen 325 mg Tablet 650 MG PO ×2 (07:53→19:53)
[2021-06-07 07:57] LABS: Basophils # 0.1 10^3/uL (0.0-0.1); Basophils % 0.4 %; Eosinophils # 0.5 10^3/uL (0.0-0.8); Eosinophils % 3.3 %; Hematocrit 23.7 % (42.0-52.0); Hemoglobin 7.6 g/dL (11.7-16.6); Lymphocytes # 1.6 10^3/uL (0.8-4.8); Mean Corpuscular HGB Conc 32.1 g/dL (30.0-36.0); Mean Corpuscular Hemoglobin 29.1 pg (28.0-34.0); Mean Corpuscular Volume 90.8 fl (80-94); Mean Platelet Volume 10.4 fL (7.4-10.4); Monocytes # 1.7 10^3/uL (0.2-0.9); Monocytes % 11.8 %; Neutrophils # 9.99 10^3/uL (1.8-7.7); Neutrophils % 69.5 %; Nucleated Red Blood Cells # 1.1 /100WBC; Nucleated Red Blood Cells % 7.3 %; Platelet Count 243 10^3/cmm (130-400); Red Blood Count 2.61 10^6/uL (4.1-5.3); Red Cell Distribution Width 16.3 % (12.1-15.1); White Blood Count 14.4 10^3/uL (4.0-10.0)
--- NOTE | 2021-06-07 08:21 | XR_ITS ---
WS: [id number] Portable AP semiupright chest, 06/07/2021 Clinical Data: fever Comparison: Portable chest, 06/04/2021. Findings: The heart is enlarged. No nodules, masses or effusions are seen. There is no pneumothorax. The endotracheal tube and nasogastric tube are in good position. There are midline surgical paul i n the abdomen. There is a drain in the left upper quadrant. Monitor leads are on the chest wall. XR/XR chest 1V portable [id number] Impression: 1. Cardiomegaly. 2. Satisfactory position of endotracheal tube and nasogastric tube.
[2021-06-07] MEDS: magnesium sulfate premix 2 GM/50 ML PIGGYBACK IV (09:38)
[2021-06-07] MEDS: lactulose oral liq 20 gm/30 mL UDC 15 GM PO (09:38)
[2021-06-07] MEDS: thiamine 100 mg Tablet PO (09:39)
[2021-06-07] MEDS: multivitamin therapeutic Tablet 1 TAB PO (09:39)
[2021-06-07] MEDS: folic acid 1 mg Tablet PO (09:39)
[2021-06-07 11:18] LABS: Blood Urine 2+ (Negative); Glucose Urine UA Norm (Normal); Ketones Urine 1+ (Negative); Nitrate Urine Negative (Negative); Protein Urine 1+ (Negative); Urine Appearance Clear (CLEAR); Urine Color Yellow (Yellow); pH Urine 5 (5-7)
[2021-06-07 11:19] LABS: Add Urine Microscopic? YES; Bilirubin Urine 1+ (Negative); Leukocyte Esterase Urine Negative (Negative); RBC Urine 0-4 /hpf (0-2); Urobilinogen Urine 4 mg/dL (Negative); WBC Urine 0-4 /hpf (0-5)
[2021-06-07 11:20] LABS: Add Urine Culture? No; Bacteria Urine 1+ /hpf
[2021-06-07] MEDS: dexmedeTOMIDine 0.9 % NaCL 400 MCG/100 ML PREMIX 13.61 MCG IV (11:34)
[2021-06-07 12:01] LABS: Vancomycin Trough 11.4 ug/mL (10-15)
--- NOTE | 2021-06-07 12:12 | P.PN_ITS ---
Subjective Subjective: Interval history: Intubated, mechanical ventilator, currently not in distress. Sedation was restarted overnight. Vitals/I&O/Wt Last Vital Signs Temp 100.8 F H 06/07/21 07:30 Pulse 82 06/07/21 09:00 Resp 18 06/07/21 09:16 BP 113/63 06/07/21 09:00 Pulse Ox 97 06/07/21 09:16 06/06/21 06/07/21 06/07/21 22:59 06:59 14:59 Intake Total 1103.350 / 7558.711 4612.819 / 4231.169 74.59 / 74.59 Output Total 1081 / 1081 555 / 1636 Balance 22.350 / 786.071 0998.819 / 2595.169 74.59 / 74.59 Physical Exam Narrative: EXAM NARRATIVE: Father at bedside. Const: COMMON NORMALS: no acute distress GENERAL APPEARANCE: patient mechanically ventilated HENMT: COMMON NORMALS: oropharynx normal Eye: OTHER: Equal pupils Neck/C-Spine: COMMON NORMALS: no JVD Resp: COMMON NORMALS: normal respiratory effort and clear to auscultation bilaterally AUSCULTATION: clear to auscultation bilaterally Cardio: COMMON NORMALS: no JVD, regular rhythm, S1 normal heart sound present, S2 normal heart sound present and No murmurs present (Cardio) RHYTHM: regular rhythm HEART SOUNDS: S1 normal heart sound present and S2 normal heart sound present GI: COMMON NORMALS: Soft to palpation AUSCULTATION: Yes Hypoactive bowel sounds present PALPATION: Yes Soft to palpation OTHER: Midline wound clean Drain with old blood, serous drainage. Extremity: COMMON NORMALS: no joint enlargement GENERAL: Yes edema (Trace) Skin: COMMON NORMALS: no rashes or lesions noted GENERAL SKIN EXAM: no rashes or lesions noted Data : 06/07/21 07:45 06/07/21 04:23 Micro: Microbiology 06/06/21 10:37 Blood Culture - Preliminary Blood NEGATIVE TO DATE 06/06/21 10:44 Blood Culture - Preliminary Blood NEGATIVE TO DATE A&P Assessment and plan (1) Acute encephalopathy: Yesterday sedation is being weaned down, but restarted again overnight. Discussed with nursing staff, he is now off Versed, discussed to stop fentanyl. Continue Precedex alone. We will trial, and will try aim for extubation today if possible unless persistent severe encephalopathy causing inability to protect his airway. Wean down sedation, spontaneously moving his arms, legs, but so far not alert to communicate and does not follow commands. Concern for possible ischemic brain injury. Possibility of alcohol withdrawal. Father denies knowledge of prior DTs or withdrawal seizure. Continue with [facility] protocol. Status: Acute (2) Acute blood loss anemia: Slight decrease. Discussed with surgery. Thought due to fluid shift or prior slow small vessel lose. No fresh blood in the drain. He is hemodynamically doing well. Continue to monitor. Status: Acute (3) Fever: Possible sepsis, WBC count 14.4, low-grade fever 100.8 Fahrenheit. Pneumonia. Sputum culture collected today. Additionally requested urine culture. Cordero catheter is draining. Follow-up blood culture. Discussed with surgery, for now hold off additional imaging. COVID-19 PCR negative. Continue empiric Zosyn plus vancomycin. Status: Acute (4) Shock: Resolved. Off Levophed. Overall has received 11 units PRBC, 4 units FFP,4 units platelet. Keep mean artery pressure over 65. Status: Acute (5) Hypoxia: Oxygenation better today, down to 40% FiO2. PEEP of 8. Wean down sedation, extubate today if possible. COVID-19 PCR negative. Pending sputum culture. Continue Zosyn, vancomycin. Mucinex. Pulmonary toilet. Status post additional Lasix dose. Status: Acute (6) Hemorrhage intraabdominal: Status: Acute (7) Spleen laceration: Post splenectomy, reexploration in OR on 06/02 Status: Acute Qualifiers: Encounter type: initial encounter Qualified Code(s): S36.039A - Unspecified laceration of spleen, initial encounter (8) Post-splenectomy: Currently on appropriate post splenectomy antibiotic prophylaxis with Piperacillin tazobactam. Ideally would prefer to administer PCV 13, Hib, meningococcal vaccines Menveo and Bexsero prior to discharge however currently we only have the pneumococcal vaccines (Prevnar 13 and pneumovax 23) available as inpatient. Recommend to administer PCV 13 approximately 7 days post op or at discharge, whichever is sooner. PPSV 23 to follow 8 weeks post op. Hemophilus and meningococcal vaccine series to be completed as outpatient at least 2 weeks post-emergency splenectomy. Status: Acute (9) Alcohol intoxication: Ativan per [facility] protocol. Thiamine, folic acid, multivitamins. Status: Acute Qualifiers: Complication of substance-induced condition: with unspecified complication Qualified Code(s): F10.929 - Alcohol use, unspecified with intoxication, unspecified (10) Ventilator dependence: Continue weaning attempts to extubate. Additional assessment of hypoxia, pneumonia as above. Status: Acute Additional A&P Information Hypokalemia: Replace Hypomagnesemia: Replace Protonix for PUD prophylaxis. SCDs for DVT prophylaxis. Guarded prognosis. Discussed with surgery, nursing staff. Discussed with father at bedside. Attestations Medical Necessity Statement*: Continue admission for assessment management of acute encephalopathy, weaning of sedation, mechanical ventilation, monitoring of acute blood loss anemia, splenectomy, reexploration, management of pneumonia, investigation of fever. Critical Care Time: The high probability of a clinically significant, sudden or life threatening deterioration of the patient's neurologic/encephalopathy, anemia sedation and ventilatory support, fever, ongoing infection with assessment of cirrhosis of possible sepsis required my full and direct attention, intervention and personal management. The critical care time is as shown. This time is in addition to time spent performing any reported procedures but includes the following: x Data and vital sign review and interpretation x Patient assessment, examination and intervention x Documentation x Medication orders and management Critical Care Time (min): 55 Coding Level of Care Code Acute President And Chief Commercial Officer for [facility] Fwd Exam Comprehensive Diagnoses Acute encephalopathy G93.40 Acute blood loss anemia D62 Fever R50.9 Shock R57.9 Hypoxia R09.02 Hemorrhage intraabdominal R58 Spleen laceration S36.039A Encounter type: initial encounter Post-splenectomy Z90.81 Alcohol intoxication F10.929 Complication of substance-induced condition: with unspecified complication Ventilator dependence Z99.11
--- NOTE | 2021-06-07 14:08 | P.PN_ITS ---
Subjective Subjective: Interval history: Patient is off pressors, sedation being weaned, on 40% FiO2 Vitals/I&O/Wt Last Vital Signs Temp 98.8 F 06/07/21 13:00 Pulse 79 06/07/21 12:21 Resp 18 06/07/21 13:00 BP 117/63 06/07/21 13:00 Pulse Ox 94 06/07/21 12:17 06/06/21 06/07/21 06/07/21 22:59 06:59 14:59 Intake Total 1103.350 / 4231.169 2977.819 / 4231.169 365.457 / 365.457 Output Total 1081 / 1636 555 / 1636 30 / 30 Balance 22.350 / 2595.169 2422.819 / 2595.169 335.457 / 335.457 Physical Exam Narrative: EXAM NARRATIVE: Abdomen: Soft, slightly distended, incision clean dry and intact, COLE drain output is mainly dark old blood Data : 06/07/21 07:45 06/07/21 04:23 Micro: Microbiology 06/06/21 10:37 Blood Culture - Preliminary Blood NEGATIVE TO DATE 06/06/21 10:44 Blood Culture - Preliminary Blood NEGATIVE TO DATE A&P Assessment and plan (1) H/O splenectomy: 41-year-old male status post splenectomy for traumatic grade 5 splenic laceration who had to be taken back to surgery for postop bleeding. Good urine output, currently off pressors, being weaned off sedation Hemoglobin is 7.6: Continue to monitor WBC: 14.4, cultures pending, continue vancomycin and Zosyn Increase lactulose to 30 cc twice daily Continue tube feeds at 45 cc/h Hopefully patient can be extubated in the next 24 hours Status: Acute Attestations Medical Necessity Statement*: Intubated, requiring continued inpatient monitoring Coding Level of Care Code Acute Inside Sales Representative for [facility] Fw Diagnoses H/O splenectomy Z90.81
[2021-06-07] MEDS: LORazepam 2 mg/mL INJ 1 mL IVP (16:22)
[2021-06-07] MEDS: lactulose oral liq 20 gm/30 mL UDC 30 GM PO (17:14)
[2021-06-07] MEDS: guaiFENesin 600 mg Tablet 1200 MG PO (17:15)
[2021-06-07] MEDS: dexmedeTOMIDine 0.9 % NaCL 400 MCG/100 ML PREMIX 27.22 MCG IV (18:32)
[2021-06-07] MEDS: LORazepam 2 mg/mL INJ 1 mL IM (19:52)
[2021-06-07] MEDS: midazolam 1 mg/mL INJ 2 mL IVP (20:42)
--- NOTE | 2021-06-07 20:47 | PC.NURSE ---
New Orders; Pt becoming extremely agitated. Biting against tube, increased RR into mid 30's with desats down into upper 80%. ST 115-130 at times. Not following any sort of commands. Repositioned for comfort. RN gave PRN Ativan per protocol. Unsuccessful at relieving agitation. Dr. Carmel LARSON balloon seller overnight, updated on pt's change in status. New orders received.
[2021-06-07] MEDS: fentaNYL 50 mcg/mL INJ 2mL IVP (21:52)
[2021-06-07] MEDS: dexmedeTOMIDine 0.9 % NaCL 400 MCG/100 ML PREMIX 32.66 MCG IV (22:00)
[2021-06-08] VITALS (63 sets, daily range): BP systolic 111–179; BP diastolic 64–129; PULSE 73–137; RESP 18–43; TEMP 37.2–38.3; O2SAT 88–100
[2021-06-08] MEDS: ipratropium-albuterol 3 mL Neb INHALATION ×6 (00:16→20:02)
[2021-06-08] MEDS: piperacillin-tazobactam 3.375 GM in sodium chloride 0.9% (plus) 50 ML IV ×3 (01:23→16:37)
[2021-06-08] MEDS: LORazepam 2 mg/mL INJ 1 mL IVP ×3 (01:24→19:39)
[2021-06-08] MEDS: dexmedeTOMIDine 0.9 % NaCL 400 MCG/100 ML PREMIX 27.22 MCG IV ×2 (02:45→07:07)
[2021-06-08] MEDS: vancomycin 1,000 MG in sodium chloride 0.9% 250 ML 250 MG IV ×3 (05:38→19:39)
[2021-06-08 05:43] LABS: Hematocrit 24.3 % (42.0-52.0); Hemoglobin 7.6 g/dL (11.7-16.6); Mean Corpuscular HGB Conc 31.3 g/dL (30.0-36.0); Mean Corpuscular Volume 92.7 fl (80-94); Mean Platelet Volume 10.4 fL (7.4-10.4); Platelet Count 332 10^3/cmm (130-400); Red Blood Count 2.62 10^6/uL (4.1-5.3); Red Cell Distribution Width 16.4 % (12.1-15.1); White Blood Count 14.4 10^3/uL (4.0-10.0)
[2021-06-08 05:52] LABS: Alanine Aminotransferase 51 U/L (0-41); Albumin Level 2.2 g/dL (3.5-5.2); Alkaline Phosphatase 292 IU/L (40-130); Anion Gap 15.5 (5-19); Aspartate Amino Transferase 51 U/L (0-40); Blood Urea Nitrogen 11 mg/dL (6-20); Calcium 8.6 mg/dL (8.5-10.5); Carbon Dioxide 21 mmol/L (22-29); Chloride 111 mmol/L (98-107); Globulin 3.5 g/dL (1.3-4.6); Glomerular Filtration Rate 107.1 mL/min (90-130); Glucose 132 mg/dL (65-115); Osmolality Calculated 299 mOsm/kg (285-295); Potassium 3.5 mmol/L (3.5-5.1); Sodium 144 mmol/L (136-145); Total Bilirubin 0.3 mg/dL (0.15-1.2); Total Protein 5.7 g/dL (6.6-8.7)
[2021-06-08] MEDS: LORazepam 2 mg/mL INJ 1 mL IM ×2 (06:12→22:20)
--- NOTE | 2021-06-08 06:41 | PC.NURSE ---
Shift Summary; Multiple PRN medications administered as appropriate and indicated for pain and anxiety relieve. Pt repositioned on side to side turns Q2Hr. Hygiene care completed, with wounds assessed. Dressings changed. Pt HR fluctuating between 115-140 during times of agitation. See MAR for titrations. Some episodes of desat when RR increased in mid-30's. Not following commands at this time. ZEKE. Report given to oncjillian stoll RN.
[2021-06-08 07:38] LABS: Absolute Eosinophils 0.7 10^3/cmm (0.0-0.7); Absolute Neutrophil 10.7 10^3/cmm (1.4-6.5); Absolute Segmented Neutrophil 10.5 10/cmm (1.6-7.1); Band Neutrophils Absolute 0.1 10^3/cmm (0.0-1.2); Eosinophils 5 %; Lymphocytes 7 %; Monocytes Absolute 1.4 10^3/cmm (0.1-0.6); Platelet Estimate Increased (Normal); Segmented Neutrophils 73 %; Slide Review Slide Review Perform; Total Cells Counted 100 (0-100)
[2021-06-08 07:39] LABS: Anisocytosis Trace; Polychromasia Trace
[2021-06-08] MEDS: folic acid 1 mg Tablet PO (07:59)
[2021-06-08] MEDS: multivitamin therapeutic Tablet 1 TAB PO (07:59)
[2021-06-08] MEDS: guaiFENesin 600 mg Tablet 1200 MG PO ×2 (07:59→17:30)
[2021-06-08] MEDS: thiamine 100 mg Tablet PO (07:59)
[2021-06-08] MEDS: lactulose oral liq 20 gm/30 mL UDC 30 GM PO (08:00)
[2021-06-08] MEDS: pantoprazole 40 mg SDV IVP (08:29)
--- NOTE | 2021-06-08 08:53 | PM.PN ---
Subjective Subjective: Interval history: Patient is off pressors, sedation being weaned, off fentanyl and Versed, on 40% FiO2 Vitals/I&O/Wt Last Vital Signs Temp 99.9 F H 06/08/21 04:00 Pulse 87 06/08/21 08:53 Resp 36 H 06/08/21 08:47 BP 123/73 06/08/21 06:00 Pulse Ox 92 06/08/21 08:47 06/07/21 06/08/21 06/08/21 22:59 06:59 14:59 Intake Total 1015.000 / 2184.332 550.00 / 2184.332 Output Total 800 / 1610 780 / 1610 Balance 215.000 / 574.332 -230.00 / 574.332 Physical Exam Narrative: EXAM NARRATIVE: Abdomen: Soft, slightly distended, incision clean dry and intact, COLE drain output is mainly dark old blood Data : 06/08/21 05:20 06/08/21 05:20 Micro: Microbiology 06/07/21 08:00 Gram Stain - Final Sputum - Endotracheal Tube Aspirate 06/06/21 10:37 Blood Culture - Preliminary Blood NEGATIVE TO DATE 06/06/21 10:44 Blood Culture - Preliminary Blood NEGATIVE TO DATE A&P Assessment and plan (1) H/O splenectomy: 41-year-old male status post splenectomy for traumatic grade 5 splenic laceration who had to be taken back to surgery for postop bleeding. Good urine output, currently off pressors, being weaned off sedation Hemoglobin is 7.6: Continue to monitor WBC: 14.4, cultures pending, continue vancomycin and Zosyn Lactulose 30 cc twice daily Continue Protonix for GI prophylaxis SCD for DVT prophylaxis Continue tube feeds at 45 cc/h Hopefully patient can be extubated in the next 24 hours Status: Acute Attestations Medical Necessity Statement*: Status post frenectomy on ventilator requiring 1 more night of inpatient stay Coding Level of Care Code Acute Transformation Architect for [facility] Diagnoses H/O splenectomy Z90.81
--- NOTE | 2021-06-08 10:44 | PC.NURSE ---
large liquid bm noted yoshi care done and linen change done at this time
--- NOTE | 2021-06-08 11:40 | PC.NURSE ---
large liquid bm noted repeat more alert at this time weaning sedation and vent as tolerated
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
[2021-06-08] MEDS: dexmedeTOMIDine 0.9 % NaCL 400 MCG/100 ML PREMIX 8.17 MCG IV ×2 (13:29→20:16)
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
[2021-06-08] MEDS: acetaminophen 325 mg Tablet 650 MG PO (15:45)
[2021-06-08] MEDS: fentaNYL 50 mcg/mL INJ 2mL IVP (16:38)
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
--- NOTE | 2021-06-08 21:39 | PC.NURSE ---
Precedex; Precedex gtt infusing @1mcg/kg/hr during time of shift change. Mar updated to reflect gtt titration.
[2021-06-09] VITALS (47 sets, daily range): BP systolic 95–147; BP diastolic 54–96; PULSE 69–109; RESP 15–49; TEMP 37.2–39.3; O2SAT 85–996
[2021-06-09] MEDS: dexmedeTOMIDine 0.9 % NaCL 400 MCG/100 ML PREMIX 27.22 MCG IV ×2 (00:22→04:03)
[2021-06-09] MEDS: piperacillin-tazobactam 3.375 GM in sodium chloride 0.9% (plus) 50 ML IV ×3 (00:27→16:56)
[2021-06-09] MEDS: ipratropium-albuterol 3 mL Neb INHALATION ×7 (00:52→23:20)
[2021-06-09 04:18] LABS: Basophils # 0.1 10^3/uL (0.0-0.1); Basophils % 0.6 %; Eosinophils # 0.8 10^3/uL (0.0-0.8); Eosinophils % 5.7 %; Hematocrit 23.8 % (42.0-52.0); Hemoglobin 7.6 g/dL (11.7-16.6); Lymphocytes # 1.7 10^3/uL (0.8-4.8); Lymphocytes % 11.9 %; Mean Corpuscular HGB Conc 31.9 g/dL (30.0-36.0); Mean Corpuscular Hemoglobin 29.5 pg (28.0-34.0); Mean Corpuscular Volume 92.2 fl (80-94); Mean Platelet Volume 10.4 fL (7.4-10.4); Monocytes # 1.9 10^3/uL (0.2-0.9); Monocytes % 13.1 %; Neutrophils # 9.54 10^3/uL (1.8-7.7); Neutrophils % 65.3 %; Nucleated Red Blood Cells # 0.6 /100WBC; Nucleated Red Blood Cells % 3.8 %; Platelet Count 353 10^3/cmm (130-400); Red Blood Count 2.58 10^6/uL (4.1-5.3); Red Cell Distribution Width 15.9 % (12.1-15.1); White Blood Count 14.6 10^3/uL (4.0-10.0)
[2021-06-09 04:32] LABS: Alanine Aminotransferase 47 U/L (0-41); Albumin Level 2.5 g/dL (3.5-5.2); Alkaline Phosphatase 251 IU/L (40-130); Anion Gap 12.9 (5-19); Aspartate Amino Transferase 45 U/L (0-40); Blood Urea Nitrogen 12 mg/dL (6-20); Calcium 7.7 mg/dL (8.5-10.5); Carbon Dioxide 23 mmol/L (22-29); Chloride 109 mmol/L (98-107); Globulin 2.9 g/dL (1.3-4.6); Glomerular Filtration Rate 107.1 mL/min (90-130); Glucose 115 mg/dL (65-115); Osmolality Calculated 293 mOsm/kg (285-295); Potassium 3.9 mmol/L (3.5-5.1); Sodium 141 mmol/L (136-145); Total Bilirubin 0.3 mg/dL (0.15-1.2); Total Protein 5.4 g/dL (6.6-8.7)
[2021-06-09] MEDS: vancomycin 1,000 MG in sodium chloride 0.9% 250 ML 250 MG IV ×2 (04:47→12:37)
[2021-06-09 05:06] LABS: Slide Review Slide Review Perform
[2021-06-09] MEDS: fentaNYL 50 mcg/mL INJ 2mL IVP (05:26)
[2021-06-09] MEDS: LORazepam 2 mg/mL INJ 1 mL IVP ×4 (06:34→23:55)
--- NOTE | 2021-06-09 07:15 | PC.NURSE ---
bedside report received from Neris BENDER Holding tube feeding at this time for possible exubation.
--- NOTE | 2021-06-09 07:27 | PC.NURSE ---
Shift Summary; Pt rested well for majority of this shift. Q2Hr turns completed. Early this AM, pt became more alert and was able to answer RN questions by squeezing his right hand on command. Pt able to follow RN's finger when asked. Dr Osman notified of this change. Precedex gtt slowly titrated as indicated and appropriate. After bed linen change from bowel movement, new optifoam placed on sacrum. Pt woke even more so. Would not follow RN's commands, and became extremely agitated. Thrashing in bed, biting on tube and actively pulling against restraints attempting to reach for intubation tube. RN remained at bedside. Pt continued to become more agitated. PRN medications given. Gtt titrations made. See Mar flowsheet. Repositioned multiple times for comfort. Pt still agitated at time of shift change. Tube feedings held as of now. 450mL total intake through NG tube. 850 u/o through davis. 45mL through Parminder drain. Bedside rounding completed with oncjillian stoll RN.
[2021-06-09] MEDS: pantoprazole 40 mg SDV IVP (08:27)
[2021-06-09] MEDS: thiamine 100 mg Tablet PO (08:28)
[2021-06-09] MEDS: guaiFENesin 600 mg Tablet 1200 MG PO ×2 (08:28→18:03)
[2021-06-09] MEDS: multivitamin therapeutic Tablet 1 TAB PO (08:28)
[2021-06-09] MEDS: folic acid 1 mg Tablet PO (08:28)
[2021-06-09] MEDS: dexmedeTOMIDine 0.9 % NaCL 400 MCG/100 ML PREMIX 32.66 MCG IV ×2 (09:48→15:05)
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
--- NOTE | 2021-06-09 11:24 | PC.NURSE ---
pt extubated per RT to 4 l nc. father at bedside. will closely monitor.
--- NOTE | 2021-06-09 11:43 | PC.NUTR ---
Noted that TF was halted @ 7:27 this morning. When medically appropriate and after TF is restarted, recommend increasing Pt's TF of 45 ml/hr (as tolerated) to higher goal rate of Jevity 1.2 @ 60 mls/hr with FW flushes of 150 ml Q4H or per MD discretion. This will more closely approximate Pt's estimated calorie and protein needs. See full RD assessment for details.
[2021-06-09] MEDS: enoxaparin 40 mg/0.4 mL Syringe SUBCUT (12:38)
--- NOTE | 2021-06-09 19:08 | PM.PN ---
Subjective Subjective: Interval history: This morning noted to be following commands for his RN, for me open his eyes, appear to be moving his arms, legs, but did not follow commands. Reported exhibiting cough. Subsequently on reassessment by surgery reported following commands again. Extubated to nasal cannula oxygen. Vitals/I&O/Wt Last Vital Signs Temp 99.1 F 06/09/21 18:00 Pulse 101 H 06/09/21 18:06 Resp 26 H 06/09/21 18:06 BP 129/69 06/09/21 18:00 Pulse Ox 94 06/09/21 18:06 06/09/21 06/09/21 06/09/21 06:59 14:59 22:59 Intake Total 965.495 / 1732.081 458.906 / 458.906 Output Total 550 / 3735 1979 Balance 415.495 / -2002.919 458.906 / 458.906 -1979 / 1521.094 Physical Exam Narrative: EXAM NARRATIVE: Father at bedside. Const: COMMON NORMALS: no acute distress GENERAL APPEARANCE: patient mechanically ventilated OTHER: Opening eyes, moving all extremities. HENMT: COMMON NORMALS: oropharynx normal Eye: OTHER: Equal pupils, reactive to light Neck/C-Spine: COMMON NORMALS: no JVD Resp: COMMON NORMALS: normal respiratory effort and clear to auscultation bilaterally AUSCULTATION: clear to auscultation bilaterally Cardio: COMMON NORMALS: no JVD, regular rhythm, S1 normal heart sound present, S2 normal heart sound present and No murmurs present (Cardio) RHYTHM: regular rhythm HEART SOUNDS: S1 normal heart sound present and S2 normal heart sound present GI: COMMON NORMALS: Soft to palpation AUSCULTATION: Yes Hypoactive bowel sounds present PALPATION: Yes Soft to palpation OTHER: Midline wound clean Drain with old blood, serous drainage. Extremity: COMMON NORMALS: no joint enlargement GENERAL: Yes edema (Trace) Skin: COMMON NORMALS: no rashes or lesions noted GENERAL SKIN EXAM: no rashes or lesions noted Data : 06/09/21 03:25 06/09/21 03:25 Micro: Microbiology 06/07/21 08:00 Gram Stain - Final Sputum - Endotracheal Tube Aspirate Sputum Culture - Final Staphylococcus aureus A&P Assessment and plan (1) Acute encephalopathy: Continue to wean down sedation. Multiple reports of being awake, following commands, RSBI 61. As he is continuing to wake up, did well on weaning trial regarding respiratory status, extubated to nasal cannula. Continue oxygen support. For now continues with Precedex drip. Ativan as needed for alcohol withdrawal. N.p.o. for now. Continue to mobilize with PT, will add OT. Status: Acute (2) Acute blood loss anemia: Hemoglobin today again 7.6. Monitor. Thought due to fluid shift or prior slow small vessel ooze. No fresh blood in the drain. He is hemodynamically doing well. Status: Acute (3) Fever: Improved. Stop vancomycin. Thought secondary to pneumonia, MSSA growing and sputum culture. Blood cultures preliminary negative. Possible sepsis, WBC count 14.6 Had loose stools. C. difficile requested, so far uncollected COVID-19 PCR negative. Continue empiric Zosyn plus vancomycin. Status: Acute (4) Shock: Resolved. Off Levophed. Overall has received 11 units PRBC, 4 units FFP,4 units platelet. Keep mean artery pressure over 65. Status: Acute (5) Hypoxia: MSSA growing in sputum. Stop vancomycin. Continue Zosyn. Extubated 06/09. Continue oxygen support. Heated high flow as he has been needing 5 L by nasal cannula. Continue to mobilize. N.p.o. for now. Flutter valve. COVID-19 PCR negative. Status post additional Lasix dose. Status: Acute (6) Hemorrhage intraabdominal: Status: Acute (7) Spleen laceration: Post splenectomy, reexploration in OR on 06/02 Status: Acute Qualifiers: Encounter type: initial encounter Qualified Code(s): S36.039A - Unspecified laceration of spleen, initial encounter (8) Post-splenectomy: Currently on appropriate post splenectomy antibiotic prophylaxis with Piperacillin tazobactam. Ideally would prefer to administer PCV 13, Hib, meningococcal vaccines Menveo and Bexsero prior to discharge however currently we only have the pneumococcal vaccines (Prevnar 13 and pneumovax 23) available as inpatient. Recommend to administer PCV 13 approximately 7 days post op or at discharge, whichever is sooner. PPSV 23 to follow 8 weeks post op. Hemophilus and meningococcal vaccine series to be completed as outpatient at least 2 weeks post-emergency splenectomy. Status: Acute (9) Alcohol intoxication: Ativan per [facility] protocol. Thiamine, folic acid, multivitamins. Status: Acute Qualifiers: Complication of substance-induced condition: with unspecified complication Qualified Code(s): F10.929 - Alcohol use, unspecified with intoxication, unspecified (10) Ventilator dependence: Status: Acute Additional A&P Information Hypokalemia: Replace Hypomagnesemia: Replace Protonix for PUD prophylaxis. SCDs for DVT prophylaxis. Guarded prognosis. Discussed with surgery, RT, nursing staff. Discussed with father at bedside. Attestations Medical Necessity Statement*: Continue admission for assessment management of respiratory failure, encephalopathy, status post weaning and extubation of mechanical ventilatory support, continued weaning off sedative medications for episodes of agitation with encephalopathy and alcohol withdrawal. Critical Care Time: The high probability of a clinically significant, sudden or life threatening deterioration of the patient's acute encephalopathy and respiratory system(s) required my full and direct attention, intervention and personal management. The critical care time is as shown. This time is in addition to time spent performing any reported procedures but includes the following: x Data and vital sign review and interpretation x Patient assessment, examination and intervention x Documentation x Medication orders and management Critical Care Time (min): 60 Coding Level of Care Code Acute Radio Message Router for [facility] Diagnoses Acute encephalopathy G93.40 Acute blood loss anemia D62 Fever R50.9 Shock R57.9 Hypoxia R09.02 Hemorrhage intraabdominal R58 Spleen laceration S36.039A Encounter type: initial encounter Post-splenectomy Z90.81 Alcohol intoxication F10.929 Complication of substance-induced condition: with unspecified complication Ventilator dependence Z99.11
[2021-06-09 19:37] LABS: Ammonia 55 umol/L (16-60)
[2021-06-09 19:42] LABS: Vancomycin Trough 17.6 ug/mL (10-15)
[2021-06-09] MEDS: acetaminophen 325 mg Tablet 650 MG PO (20:03)
[2021-06-09] MEDS: dexmedeTOMIDine 0.9 % NaCL 400 MCG/100 ML PREMIX 24.49 MCG IV (20:21)
--- NOTE | 2021-06-09 20:33 | PC.NURSE ---
Temperature Patient temperature 102.7F axillary. Tylenol administered per NG tube--see JUL. Fan turned on patient on high, ice packs placed underarms and on groin. All other vitals stable.
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
[2021-06-10] VITALS (57 sets, daily range): BP systolic 104–188; BP diastolic 69–109; PULSE 75–112; RESP 16–54; TEMP 37–39.3; O2SAT 66–100; BMI 27.6
[2021-06-10] MEDS: dexmedeTOMIDine 0.9 % NaCL 400 MCG/100 ML PREMIX 27.22 MCG IV (00:11)
[2021-06-10] MEDS: piperacillin-tazobactam 3.375 GM in sodium chloride 0.9% (plus) 50 ML IV ×3 (01:15→16:26)
--- NOTE | 2021-06-10 01:59 | XRR_ITS ---
PROCEDURE INFORMATION: Exam: XR Abdomen Exam date and time: 06/10/2021 1:59 AM Age: 41 years old Clinical indication: Other: Ng tube placement; Additional info: Ng placement TECHNIQUE: Imaging protocol: XR of the abdomen. Views: Frontal supine view of the abdomen. 1 View. COMPARISON: CR XR abdomen 1V* [id number] 06/02/2021 12:07 PM FINDINGS: Tubes, catheters and devices: Enteric tube coiled over the fundus of the stomach with the tip directed inferior laterally, possibly in the proximal body of the stomach. Gastrointestinal tract: Normal. No bowel dilation. Bones/joints: Unremarkable. Soft tissues: Continued vertical row of skin paul. XR/XR abdomen 1V* [id number] IMPRESSION: Enteric tube coiled over the fundus of the stomach with the tip directed inferior laterally, possibly in the proximal body of the stomach.
[2021-06-10] MEDS: ipratropium-albuterol 3 mL Neb INHALATION ×6 (03:05→23:38)
--- NOTE | 2021-06-10 03:55 | PC.NURSE ---
Restraints Patient continuously pulling heated high flow nasal cannula out of nose causing oxygen saturation to decrease into the 70s. Patient also attempting to pull at central line and COLE drain. CIWA score assessed and treated per JUL. Precedex administration at protocol maximum rate. Education and reorientation provided as needed. Dr. Osman notified of patient behavior. Order received for nonviolent bilateral soft wrist restraints for patient safety.
[2021-06-10] MEDS: dexmedeTOMIDine 0.9 % NaCL 400 MCG/100 ML PREMIX 32.66 MCG IV ×4 (04:16→16:42)
[2021-06-10] MEDS: LORazepam 2 mg/mL INJ 1 mL IVP ×3 (04:20→21:28)
[2021-06-10 05:22] LABS: Basophils # 0.1 10^3/uL (0.0-0.1); Basophils % 0.6 %; Eosinophils # 0.4 10^3/uL (0.0-0.8); Eosinophils % 2.1 %; Hematocrit 25.8 % (42.0-52.0); Hemoglobin 8.2 g/dL (11.7-16.6); Lymphocytes # 1.7 10^3/uL (0.8-4.8); Lymphocytes % 8.8 %; Mean Corpuscular HGB Conc 31.8 g/dL (30.0-36.0); Mean Corpuscular Volume 91.2 fl (80-94); Mean Platelet Volume 10.1 fL (7.4-10.4); Monocytes % 10.4 %; Neutrophils # 14.48 10^3/uL (1.8-7.7); Neutrophils % 76.3 %; Nucleated Red Blood Cells # 0.3 /100WBC; Nucleated Red Blood Cells % 1.6 %; Platelet Count 454 10^3/cmm (130-400); Red Blood Count 2.83 10^6/uL (4.1-5.3); Red Cell Distribution Width 14.9 % (12.1-15.1)
[2021-06-10 05:41] LABS: Alanine Aminotransferase 53 U/L (0-41); Albumin Level 2.8 g/dL (3.5-5.2); Alkaline Phosphatase 250 IU/L (40-130); Anion Gap 16.6 (5-19); Aspartate Amino Transferase 50 U/L (0-40); Blood Urea Nitrogen 11 mg/dL (6-20); Calcium 7.8 mg/dL (8.5-10.5); Carbon Dioxide 21 mmol/L (22-29); Chloride 108 mmol/L (98-107); Globulin 3.3 g/dL (1.3-4.6); Glomerular Filtration Rate 107.1 mL/min (90-130); Glucose 99 mg/dL (65-115); Osmolality Calculated 293 mOsm/kg (285-295); Potassium 3.6 mmol/L (3.5-5.1); Sodium 142 mmol/L (136-145); Total Bilirubin 0.5 mg/dL (0.15-1.2); Total Protein 6.1 g/dL (6.6-8.7)
[2021-06-10] MEDS: acetaminophen 325 mg Tablet 650 MG PO ×2 (06:15→16:26)
[2021-06-10] MEDS: thiamine 100 mg Tablet PO (08:22)
[2021-06-10] MEDS: folic acid 1 mg Tablet PO (08:22)
[2021-06-10] MEDS: pantoprazole 40 mg SDV IVP (08:22)
[2021-06-10] MEDS: guaiFENesin 600 mg Tablet 1200 MG PO ×2 (08:22→18:12)
[2021-06-10] MEDS: multivitamin therapeutic Tablet 1 TAB PO (08:22)
--- NOTE | 2021-06-10 10:19 | CTR_ITS ---
PROCEDURE INFORMATION: Exam: CT Abdomen And Pelvis With Contrast Exam date and time: 06/10/2021 10:19 AM Age: 41 years old Clinical indication: Abnormal findings; Abnormal lab test; Elevated wbc; Prior surgery; Surgery type: Spleen; Patient HX: PT not following instructions; Additional info: Wbc increase, oral and iv contrast TECHNIQUE: Imaging protocol: Computed tomography of the abdomen and pelvis with contrast. Radiation optimization: All CT scans at this facility use at least one of these dose optimization techniques: automated exposure control; mA and/or kV adjustment per patient size (includes targeted exams where dose is matched to clinical indication); or iterative reconstruction. Contrast material: OMNI 300; Contrast volume: 95 ml; Contrast route: INTRAVENOUS (IV); COMPARISON: CT chest abd pel w con* 06/01/2021 11:22 PM RADIATION DOSE METRICS: Total DLP (mGy-cm): 3438.7 FINDINGS: Tubes, catheters and devices: Interval left percutaneous peritoneal drainage catheter in the left upper quadrant. Percutaneous right common femoral catheter tip over the proximal right common iliac vein. Lungs: Mild bibasilar atelectasis and/or pneumonia. Pleural spaces: Mild bilateral pleural fluid collections. Liver: Normal. No mass. Gallbladder and bile ducts: Normal. No calcified stones. No ductal dilation. Pancreas: Normal. No ductal dilation. Spleen: See Intraperitoneal space finding. Adrenal glands: Normal. No mass. Kidneys and ureters: Multiple left renal simple cysts with the largest measuring > 1.0 cm. Stomach and bowel: Unremarkable. No obstruction. No mucosal thickening. Appendix: No evidence of appendicitis. Intraperitoneal space: Interval splenectomy which was previously actively bleeding with significant hemoperitoneum. Interval resolution of hemoperitoneum. Mild inflammation in the omentum and anterior peritoneum which could represent postoperative inflammation although mild peritonitis cannot be entirely ruled out. Vasculature: Unremarkable. No abdominal aortic aneurysm. Lymph nodes: Unremarkable. No enlarged lymph nodes. Urinary bladder: Cordero balloon catheter in the urinary bladder. Reproductive: Unremarkable as visualized. Bones/joints: Unremarkable. No acute fracture. Soft tissues: Interval midline row of skin paul consistent with recent laparotomy. Other findings: Examination is limited secondary to motion artifact. CT/CT abdomen pelvis w con* [id number] IMPRESSION: 1. Interval splenectomy which was previously actively bleeding with significant hemoperitoneum. 2. Interval resolution of hemoperitoneum. 3. Interval midline row of skin paul consistent with recent laparotomy. 4. Interval left percutaneous peritoneal drainage catheter in the left upper quadrant. 5. Mild inflammation in the omentum and anterior peritoneum which could represent postoperative inflammation although mild peritonitis cannot be entirely ruled out. 6. Cordero balloon catheter in the urinary bladder. 7. Percutaneous right common femoral catheter tip over the proximal right common iliac vein. 8. Mild bilateral pleural fluid collections. 9. Mild bibasilar atelectasis and/or pneumonia. COMMENTS: Consistent with the [employer] [place] [employer]'s Incidental Findings Committee white paper (J Am Casandra Radiol 2018): Any incidental renal lesion less than 1 cm or classified as too small to characterize, or any incidental cystic renal lesion characterized as simple-appearing, is likely benign. No follow-up imaging is recommended for these lesions per consensus recommendations based on imaging criteria.
--- NOTE | 2021-06-10 12:15 | P.PN_ITS ---
Subjective Subjective: Interval history: Awake, sleepy. Wakes up to voice. Weak. Apart from pain in his bottom denies pain or discomfort elsewhere. Reports some cough. Not passing flatus. Vitals/I&O/Wt Last Vital Signs Temp 100.2 F H 06/10/21 08:00 Pulse 90 06/10/21 12:09 Resp 20 H 06/10/21 12:06 BP 119/89 06/10/21 10:30 Pulse Ox 96 06/10/21 12:06 06/09/21 06/10/21 06/10/21 22:59 06:59 14:59 Intake Total 190 / 648.906 297.769 / 946.675 63.687 / 63.687 Output Total 2755 / 2755 1688 / 4443 400 / 400 Balance -2565 / -2106.094 -1390.231 / -3496.325 -336.313 / -336.313 Weight last 48 hrs Weight 95.209 kg Physical Exam Narrative: EXAM NARRATIVE: Parents at bedside. Const: COMMON NORMALS: no acute distress GENERAL APPEARANCE: cooperative and patient mechanically ventilated ORIENTATION/CONSCIOUSNESS: Yes awake HENMT: COMMON NORMALS: oropharynx normal Eye: OTHER: Equal pupils, reactive to light Neck/C-Spine: COMMON NORMALS: no JVD Resp: COMMON NORMALS: normal respiratory effort and clear to auscultation bilaterally AUSCULTATION: clear to auscultation bilaterally Cardio: COMMON NORMALS: no JVD, regular rhythm, S1 normal heart sound present, S2 normal heart sound present and No murmurs present (Cardio) RHYTHM: regular rhythm HEART SOUNDS: S1 normal heart sound present and S2 normal heart sound present GI: COMMON NORMALS: Soft to palpation AUSCULTATION: Yes Hypoactive bowel sounds present PALPATION: Yes Soft to palpation OTHER: Midline wound clean Drain with old blood, serous drainage. Extremity: COMMON NORMALS: no joint enlargement and no pedal edema Skin: COMMON NORMALS: no rashes or lesions noted GENERAL SKIN EXAM: no rashes or lesions noted Data : 06/10/21 05:00 06/10/21 05:00 Micro: Microbiology 06/07/21 08:00 Gram Stain - Final Sputum - Endotracheal Tube Aspirate Sputum Culture - Final Staphylococcus aureus A&P Assessment and plan (1) Acute encephalopathy: Gradually improving. He is somnolent, but wakes up to voice. Not very conversant, but gives short answers. Continue supportive care. Reorient. Monitor for signs of alcohol withdrawal. Weaning down Precedex, may need to go back on small right as has been on for several days, weaning slowly. Ativan as needed for alcohol withdrawal. N.p.o. for now. Continue to mobilize with PT, OT. Status: Acute (2) Acute blood loss anemia: Hemoglobin stated, today 8.2. Monitor. Thought due to fluid shift or prior slow small vessel ooze. No fresh blood in the drain. He is hemodynamically doing well. Status: Acute (3) Fever: Fever was improving, given MSSA in sputum culture, vancomycin was discontinued. Continues on Zosyn. Still low-grade fevers. Rising leukocytosis up to 19,000. Appreciate surgery request for CT abdomen pelvis. Continue Zosyn for pneumonia. Blood cultures preliminary negative. Possible sepsis Had loose stools on 06/08. C. difficile requested, so far uncollected. Loose stools resolved. COVID-19 PCR negative. Status: Acute (4) Shock: Resolved. Off Levophed. Overall has received 11 units PRBC, 4 units FFP,4 units platelet. Keep mean artery pressure over 65. Status: Acute (5) Hypoxia: MSSA growing in sputum. Stopped vancomycin. Continue Zosyn. Repeat chest x-ray. Trial of oral diet. He has been drinking liquids, so far without signs of aspiration. Extubated 06/09. Continue oxygen support. Heated high flow as he has been needing 5 L by nasal cannula. Continue to mobilize. N.p.o. for now. Flutter valve. COVID-19 PCR negative. Status post additional Lasix dose. Status: Acute (6) Hemorrhage intraabdominal: Status: Acute (7) Spleen laceration: Post splenectomy, reexploration in OR on 06/02 Status: Acute Qualifiers: Encounter type: initial encounter Qualified Code(s): S36.039A - Unspecified laceration of spleen, initial encounter (8) Post-splenectomy: Currently on appropriate post splenectomy antibiotic prophylaxis with Piperacillin tazobactam. Ideally would prefer to administer PCV 13, Hib, meningococcal vaccines Menveo and Bexsero prior to discharge however currently we only have the pneumococcal vaccines (Prevnar 13 and pneumovax 23) available as inpatient. PCV 13 does not appear available on formulary, will confirm w pharmacy. - Pharmacy tells me we have PCV13. All of vaccination chronic, once fever subside with vaccination prior to discharge. PPSV 23 to follow 8 weeks post op. Hemophilus and meningococcal vaccine series to be completed as outpatient at least 2 weeks post-emergency splenectomy. Status: Acute (9) Alcohol intoxication: Ativan per [facility] protocol. Thiamine, folic acid, multivitamins. Status: Acute Qualifiers: Complication of substance-induced condition: with unspecified complication Qualified Code(s): F10.929 - Alcohol use, unspecified with intoxication, unspecified (10) Ventilator dependence: Status: Acute Additional A&P Information Hypokalemia: Replaced Hypomagnesemia: Recheck Pressure injury sacrum: Stage II. Dressed. Continue wound care. Resuming trial of oral diet. If tolerating protein supplements. Protonix for PUD prophylaxis. SCDs for DVT prophylaxis. Guarded prognosis. Discussed with surgery, RT, nursing staff. Discussed with father at bedside. Attestations Medical Necessity Statement*: Continue admission for assessment of management of recurrent fevers, pneumonia, improving encephalopathy status post extubation, additional assessment for any possible intra-abdominal source of infection, continue supportive care for alcohol withdrawal, trial of diet and mobilization. Coding Level of Care Code Acute Disability Services Coordinator for g Fwd Exam Comprehensive Diagnoses Acute encephalopathy G93.40 Acute blood loss anemia D62 Fever R50.9 Shock R57.9 Hypoxia R09.02 Hemorrhage intraabdominal R58 Spleen laceration S36.039A Encounter type: initial encounter Post-splenectomy Z90.81 Alcohol intoxication F10.929 Complication of substance-induced condition: with unspecified complication Ventilator dependence Z99.11
--- NOTE | 2021-06-10 12:15 | PC.NURSE ---
Nurse titrated patient off of precedex. Patient remains calm in bed. Able to carry on conversation and follow directions, but still confused to place, time, and situation. PT worked with patient today and he was able to stand at bedside 2 separate times, about 2 minutes each time.
--- NOTE | 2021-06-10 12:16 | PC.NURSE ---
Patient pulled out NG tube.
[2021-06-10] MEDS: enoxaparin 40 mg/0.4 mL Syringe SUBCUT (12:38)
[2021-06-10] MEDS: iohexol 300 mg/mL 50 mL Btl PO (14:27)
--- NOTE | 2021-06-10 15:03 | XRR_ITS ---
PROCEDURE INFORMATION: Exam: XR Chest Exam date and time: 06/10/2021 3:03 PM Age: 41 years old Clinical indication: Tachypnea TECHNIQUE: Imaging protocol: XR of the chest. Views: 1 view. COMPARISON: CR XR chest 1V portable [id number] 06/07/2021 9:11 AM FINDINGS: Tubes, catheters and devices: Interval removal of endotracheal tube and nasogastric tubes. Lungs: Mild left basilar atelectasis and/or infiltrate and/or effusion. Mild to moderate nonspecific bilateral pulmonary opacities, left greater than right, most consistent with pneumonia. Pleural spaces: Unremarkable. No pleural effusion. No pneumothorax. Heart/Mediastinum: Unremarkable. No cardiomegaly. Bones/joints: Unremarkable. Other findings: Patient rotation to the left. XR/XR chest 1V portable [id number] IMPRESSION: 1. Mild left basilar atelectasis and/or infiltrate and/or effusion. 2. Mild to moderate nonspecific bilateral pulmonary opacities, left greater than right, most consistent with pneumonia. 3. Interval removal of endotracheal tube and nasogastric tubes.
[2021-06-10] MEDS: iohexol 300 mg/mL 100 mL Btl IV (15:04)
--- NOTE | 2021-06-10 15:04 | PC.NURSE ---
Patient has an incrase in respiratory rate, mid 40's, sometimes as high as 50. Nurse also observes wheezing. Patient also verbalizing anxiety related to the consequences of the DWI/accident. Patient is 10 on the CIWA scale. Nurse adminsitered Ativan. NUrse alerted Dr boateng, received orders for DUonebs Q4 hrs PRN, and a chest Xray.
--- NOTE | 2021-06-10 15:33 | PC.OT ---
OT evaluation withheld this date. Patient not available. Getting testing/labs done. May attempt at a later time or date.
--- NOTE | 2021-06-10 15:56 | PM.PN ---
Subjective Subjective: Interval history: Patient was extubated yesterday, had some liquid diet today, had a bowel movement Vitals/I&O/Wt Last Vital Signs Temp 99.6 F 06/10/21 13:00 Pulse 101 H 06/10/21 15:44 Resp 38 H 06/10/21 15:40 BP 141/94 06/10/21 13:30 Pulse Ox 98 06/10/21 15:40 06/10/21 06/10/21 06/10/21 06:59 14:59 22:59 Intake Total 297.769 / 946.675 263.687 / 263.687 Output Total 1688 / 4443 875 / 875 Balance -1390.231 / -3496.325 -611.313 / -611.313 Weight last 48 hrs Weight 209 lb 14.4 oz Physical Exam Narrative: EXAM NARRATIVE: abdomen: Soft, minimally tender, nondistended, incision clean dry and intact, COLE drain had small amount of old blood Data : 06/11/21 05:08 06/11/21 05:08 Micro: Microbiology 06/07/21 08:00 Gram Stain - Final Sputum - Endotracheal Tube Aspirate Sputum Culture - Final Staphylococcus aureus A&P Assessment and plan (1) H/O splenectomy: 41-year-old male status post splenectomy for traumatic grade 5 splenic laceration who had to be taken back to surgery for postop bleeding. Patient was extubated yesterday Hemoglobin is 7.6: Continue to monitor, Lovenox for DVT prophylaxis WBC: Went up to 19, continues to be febrile CT abdomen pelvis did not show any drainable collections, repeat COVID-19 and C. difficile, DC Cordero DC femoral central line, send tip for culture Chest x-ray showed right-sided pneumonia, pending speech eval Broaden antibiotic coverage, add vancomycin and Levaquin to Zosyn Lactulose decreased to 15 cc twice daily Continue Protonix for GI prophylaxis SCD for DVT prophylaxis Status: Acute Attestations Medical Necessity Statement*: Status post splenectomy with leukocytosis requiring continued inpatient stay Coding Level of Care Code Acute Electrical Appliance Servicer for Chg Fwd Diagnoses H/O splenectomy Z90.81
[2021-06-10] MEDS: lanolin oint 7 gm 1 APPLIC TOPICAL (16:42)
--- NOTE | 2021-06-10 16:45 | PC.OT ---
OT evaluation withheld per nursing request, pt running a fever. To attempt on later date.
[2021-06-10] MEDS: levofloxacin-dextrose 5 % 750 MG/150 ML PREMIX 100 MG IV (18:11)
[2021-06-10] MEDS: vancomycin 1,500 MG/300 ML PIGGYBACK 200 MG IV (18:11)
--- NOTE | 2021-06-10 19:30 | PC.NURSE ---
SHIft SUmmary: Patient was titrated off of precedex in the morning and became alert and oriented to person, place, time and situation. Pt worked with patient and he was able to stand at bedside for a few minutes, but is easily tired. Taken to CT today. Ativan given once for withdrawal symptoms and precedex restarted to manage recurrent symptoms. Urine output: [id number]
[2021-06-10 19:38] LABS: Glucose Urine UA Norm (Normal); Ketones Urine 1+ (Negative); Protein Urine 1+ (Negative); Specific Gravity, Urine 1.005 (1.005-1.030); Urine Appearance Clear (CLEAR); Urine Color Yellow (Yellow); pH Urine 7 (5-7)
[2021-06-10 19:39] LABS: Add Urine Microscopic? YES; Bilirubin Urine Neg (Negative); Blood Urine 3+ (Negative); Leukocyte Esterase Urine Negative (Negative); Nitrate Urine Negative (Negative); Urobilinogen Urine 1 mg/dL (Negative)
[2021-06-10 19:40] LABS: Add Urine Culture? No; Bacteria Urine TRACE /hpf; Squamous Epithelial Cell Urine 0-4 /hpf (0-5); WBC Urine 0-4 /hpf (0-5)
[2021-06-10 21:03] LABS: Adenovirus Not Detected (NOT DETECT); Chlamydia Pneumoniae Not Detected (NOT DETECT); Coronavirus 229E,HKU1,NL63,OC4 Not Detected (NOT DETECT); Human Metapneumovirus Not Detected (NOT DETECT); Human Rhinovirus/Enterovirus Not Detected (NOT DETECT); Influenza A Not Detected (NOT DETECT); Influenza A H1 Not Detected (NOT DETECT); Influenza A H1-2009 Not Detected (NOT DETECT); Influenza A H3 Not Detected (NOT DETECT); Influenza B Not Detected (NOT DETECT); Mycoplasma Pneumoniae Not Detected (NOT DETECT); Parainfluenza Virus Type 1 Not Detected (NOT DETECT); Parainfluenza Virus Type 2 Not Detected (NOT DETECT); Parainfluenza Virus Type 3 Not Detected (NOT DETECT); Parainfluenza Virus Type 4 Not Detected (NOT DETECT); Respiratory Syncytial Virus A Not Detected (NOT DETECT); Respiratory Syncytial Virus B Not Detected (NOT DETECT); SARS-COV-2 Not Detected (NOT DETECT)
[2021-06-10] MEDS: dexmedeTOMIDine 0.9 % NaCL 400 MCG/100 ML PREMIX 21.77 MCG IV (23:40)
[2021-06-11] VITALS (45 sets, daily range): BP systolic 92–143; BP diastolic 52–97; PULSE 67–120; RESP 16–45; TEMP 36.8–38.6; O2SAT 86–99; BMI 27.6
[2021-06-11] MEDS: piperacillin-tazobactam 3.375 GM in sodium chloride 0.9% (plus) 50 ML IV ×3 (00:49→19:29)
[2021-06-11] MEDS: vancomycin 1,500 MG/300 ML PIGGYBACK 200 MG IV ×3 (02:19→19:40)
[2021-06-11] MEDS: dexmedeTOMIDine 0.9 % NaCL 400 MCG/100 ML PREMIX 27.22 MCG IV ×3 (02:42→09:17)
[2021-06-11] MEDS: ipratropium-albuterol 3 mL Neb INHALATION ×5 (03:13→19:59)
[2021-06-11 05:26] LABS: Basophils # 0.1 10^3/uL (0.0-0.1); Basophils % 0.7 %; Eosinophils # 0.9 10^3/uL (0.0-0.8); Eosinophils % 5.2 %; Hematocrit 26.3 % (42.0-52.0); Hemoglobin 8.2 g/dL (11.7-16.6); Lymphocytes # 1.8 10^3/uL (0.8-4.8); Lymphocytes % 10.9 %; Mean Corpuscular HGB Conc 31.2 g/dL (30.0-36.0); Mean Corpuscular Hemoglobin 28.7 pg (28.0-34.0); Mean Platelet Volume 10.4 fL (7.4-10.4); Monocytes # 1.4 10^3/uL (0.2-0.9); Monocytes % 8.3 %; Neutrophils # 12.26 10^3/uL (1.8-7.7); Neutrophils % 73.2 %; Nucleated Red Blood Cells # 0.2 /100WBC; Nucleated Red Blood Cells % 1.4 %; Platelet Count 497 10^3/cmm (130-400); Red Blood Count 2.86 10^6/uL (4.1-5.3); Red Cell Distribution Width 14.7 % (12.1-15.1); White Blood Count 16.8 10^3/uL (4.0-10.0)
[2021-06-11 05:45] LABS: Alanine Aminotransferase 50 U/L (0-41); Albumin Level 2.6 g/dL (3.5-5.2); Alkaline Phosphatase 236 IU/L (40-130); Aspartate Amino Transferase 37 U/L (0-40); Blood Urea Nitrogen 13 mg/dL (6-20); Calcium 8.7 mg/dL (8.5-10.5); Carbon Dioxide 18 mmol/L (22-29); Chloride 110 mmol/L (98-107); Globulin 3.7 g/dL (1.3-4.6); Glomerular Filtration Rate 124.9 mL/min (90-130); Glucose 93 mg/dL (65-115); Magnesium 2.1 mg/dL (1.7-2.3); Osmolality Calculated 296 mOsm/kg (285-295); Sodium 143 mmol/L (136-145); Total Bilirubin 0.5 mg/dL (0.15-1.2); Total Protein 6.3 g/dL (6.6-8.7)
--- NOTE | 2021-06-11 06:00 | XR_ITS ---
WS: [id number] XR chest 1V portable [id number] REASON FOR EXAM: Hypoxia FINDINGS: Small areas of atelectasis in the right lower lung. Seen on the prior day's examination, improving. Vague increase in lung opacity in the left lower lung. This may also represent improving atelectasis. No other interval change or new finding. XR/XR chest 1V portable [id number] IMPRESSION: Presumed resolving atelectasis in both lower lungs.
--- NOTE | 2021-06-11 06:00 | US_ITS ---
WS: [id number] ULTRASOUND ABDOMEN LIMITED CLINICAL INFORMATION: Hepatobiliary, alk phos elev, fever. Assess 4 acalc cholecys COMPARISON: None. FINDINGS: Liver Size: Mild hepatomegaly Craniocaudal length: 16.0 cm. Echogenicity: Normal. Surface nodularity: None. Mass (size and location): None. Bile ducts Intrahepatic ducts: Normal. Common bile duct diameter: 0.4 cm. Gallbladder Decompressed Gallstones: None. Gallbladder sludge: None. Gallbladder wall thickening: None. Pericholecystic fluid: None. Sonographic Reeves sign: Absent. Pancreas Not well visualized due to bowel gas Spleen Postoperative splenectomy Right kidney: Normal. Hydronephrosis: None. Size: 12.6 cm x 5.9 cm x 6.0 cm. Abdominal aorta and IVC Visualized portions are normal. Ascites: Small right pleural effusion. US/US abdomen limited [id number] IMPRESSION: 1. Mild hepatomegaly. 2. Postoperative splenectomy. 3. Gallbladder is contracted. Normal common bile duct. No gallstones or sludge . 4. No intrahepatic biliary dilatation.
--- NOTE | 2021-06-11 07:12 | PC.NURSE ---
Patient remained alert and oriented. Intermittently confused and reaching for the IV pumps thinking it is his cell phone . Patient complains of itching, some sweating, intermittent restlessness. Increased precedex to help with restlessness and patient trying to get out of bed, gave ativan as well prn. Removed davis catheter and central line. Patient now on 6LNC from high flow oxygen prior. Remained normal sinus. Urine output 1,000ml overnight. No bowel movement. Patient makes inappropriate comments to nursing staff asking to go on a date, and to get in bed with him . No bath given per patient inappropriate comments associated with the task.
[2021-06-11] MEDS: multivitamin therapeutic Tablet 1 TAB PO (09:23)
[2021-06-11] MEDS: guaiFENesin 600 mg Tablet 1200 MG PO ×2 (09:23→18:33)
[2021-06-11] MEDS: folic acid 1 mg Tablet PO (09:24)
[2021-06-11] MEDS: thiamine 100 mg Tablet PO (09:24)
[2021-06-11] MEDS: pantoprazole 40 mg SDV IVP (09:24)
--- NOTE | 2021-06-11 09:31 | PC.CHAP ---
Pastoral Care Encounter/Spiritual Assessment Type of Contact [] Declined drywall taper visit [] Patient/Family/Request visit [] Outpatient visit [] Follow-up visit [] Physician referral [] Code/Alert [x] Routine visit [] Staff referral [] Actively dying [] Patient sleeping [x] Family support [] [] Out of room [] Palliative care [] [] Receiving care in room [] Pre-surgical visit [] Trauma [] Long length of stay [x] ICU visit [] Other: Relational/Emotional Strength [] Patient feels connected with others/family/visitors/staff [] Distress [] Loneliness/isolation [] Abandonment Spirituality of Patient [] Person of Hellen [] Attends Sabianism of their Hellen [] Believes in Prayer [] Reads Bible or Scientology materials [] There are Spiritual issues to be addressed Feller Machine Operator Interventions [x] Prayer [x] Active listening [x] Non-anxious presence [x] Spiritual/emotional support [] Crisis/trauma care [] Spiritual counseling [] Bereavement support [] Provided bereavement packet [] Provided Bible/devotional materials [] Provided toy/stuffed animal, coloring book to patient or family member [] Provided Communion [] Anointing/Apache [] Salvation [x] Completed spiritual assessment [] Other: Impact on Illness or Injury [] Angry [] Fearful [] Anxious [] Often cries [] Exhaustion [] Unable to work [] Unable to attend hinduism [] Unable to walk/stand [] Unable to read [] Unable to drive [] Unable to eat/drink [] Unable to sleep [] Unable to be with family [] Patient intubated [] Other: Summary regaining ability to speak- eating and drinking.. physical therapy will begin assisting in walking Time spent with patient 10min
[2021-06-11] MEDS: enoxaparin 40 mg/0.4 mL Syringe SUBCUT (11:27)
--- NOTE | 2021-06-11 15:28 | PM.PN ---
Subjective Subjective: Interval history: Patient is more awake, no nausea or vomiting, had bowel movements, tolerating regular diet, continues to be febrile Vitals/I&O/Wt Last Vital Signs Temp 98.2 F 06/11/21 08:00 Pulse 98 06/11/21 15:00 Resp 36 H 06/11/21 15:00 BP 112/83 06/11/21 14:00 Pulse Ox 96 06/11/21 13:00 06/11/21 06/11/21 06/11/21 06:59 14:59 22:59 Intake Total 517.487 / 2031.174 470.272 / 778.465 308.193 / 778.465 Output Total 1035 / 3860 35 / 35 Balance -517.513 / -1828.826 435.272 / 743.465 308.193 / 743.465 Weight last 48 hrs Weight 209 lb 14.4 oz Weight 209 lb 14.4 oz Physical Exam Narrative: EXAM NARRATIVE: Abdomen: Soft, nontender, nondistended, COLE drain output serosanguineous Data : 06/14/21 05:33 06/14/21 05:33 Micro: Microbiology 06/06/21 10:37 Blood Culture - Final Blood NO GROWTH AFTER 5 DAYS 06/06/21 10:44 Blood Culture - Final Blood NO GROWTH AFTER 5 DAYS 06/10/21 18:40 Legionella Urinary Antigen - Final Urine,Voided Bacterial Antigens - Final A&P Assessment and plan (1) H/O splenectomy: 41-year-old male status post splenectomy for traumatic grade 5 splenic laceration who had to be taken back to surgery for postop bleeding. Patient was extubated yesterday Hemoglobin at 8.7: Continue to monitor, Lovenox for DVT prophylaxis WBC: Stable at 19, continues to be febrile CT abdomen pelvis did not show any drainable collections, COVID-19, negative Chest x-ray showed right-sided pneumonia, pending speech eval Continue vancomycin and Levaquin to Zosyn Lactulose decreased to 15 cc twice daily Continue Protonix for GI prophylaxis SCD for DVT prophylaxis Status: Acute Attestations Medical Necessity Statement*: Status post frenectomy, with delirium tremens, improving, will need couple more days of inpatient stay until patient is afebrile Coding Level of Care Code Acute Hotel Maintenance Technician for Chg Fwd Diagnoses H/O splenectomy Z90.81
--- NOTE | 2021-06-11 16:12 | CTR_ITS ---
PROCEDURE INFORMATION: Exam: CT Head Without Contrast Exam date and time: 06/11/2021 4:12 PM Age: 41 years old Clinical indication: Altered mental status/memory loss; Additional info: [facility] TECHNIQUE: Imaging protocol: Computed tomography of the head without contrast. Radiation optimization: All CT scans at this facility use at least one of these dose optimization techniques: automated exposure control; mA and/or kV adjustment per patient size (includes targeted exams where dose is matched to clinical indication); or iterative reconstruction. COMPARISON: CT head wo con* [id number] 06/01/2021 11:13 PM RADIATION DOSE METRICS: Total DLP (mGy-cm): 912.53 FINDINGS: There is mild generalized atrophy. There are mild areas of decreased attenuation in the periventricular white matter which is nonspecific but likely relates to small vessel ischemic change. There is no evidence for acute infarct. There is no evidence for mass. There is no hemorrhage. There are no extra-axial fluid collections. There is no midline shift. Surgical paul are seen involving the left frontal scalp. These cause artifact. There is patchy opacification of the ethmoid air cells improved since the prior exam. There is opacification of the left sphenoid sinus which is new since the prior exam. CT/CT head wo con* [id number] IMPRESSION: No evidence for acute infarct, mass or hemorrhage.
--- NOTE | 2021-06-11 16:16 | P.PN_ITS ---
Subjective Subjective: Interval history: Hospital course, labs appreciated. On examination patient is on 1 of Precedex, awake but jittery and fidgety. During the day Precedex was weaned down. T-max in last 24 hours 102.8 Fahrenheit yesterday afternoon. Patient has remained hemodynamically stable. Started on full liquid diet. Vitals/I&O/Wt Last Vital Signs Temp 98.2 F 06/11/21 08:00 Pulse 105 H 06/11/21 16:03 Resp 30 H 06/11/21 16:03 BP 112/83 06/11/21 14:00 Pulse Ox 96 06/11/21 16:03 06/11/21 06/11/21 06/11/21 06:59 14:59 22:59 Intake Total 517.487 / 2031.174 470.272 / 470.272 308.193 / 778.465 Output Total 1035 / 3860 35 / 35 400 / 435 Balance -517.513 / -1828.826 435.272 / 435.272 -91.807 / 343.465 Weight last 48 hrs Weight 95.209 kg Weight 95.209 kg Physical Exam Narrative: EXAM NARRATIVE: General: intubated, sedated, sutures present on left frontal scalp HEENT: PERRLA, pupils bilaterally equal and reactive Chest: Bilateral bronchial breath sounds, rhonchi and wheeze present, decreased air entry right middle and lower zone, CVS: S1-S2 regular, NO tachycardia, no gallops, no rubs Abdomen: Soft generally other than mild guarding present in left lower quadrant, midline post op dressing in place Neuro: unable to assess at this time Data : 06/11/21 05:08 06/11/21 05:08 Micro: Microbiology 06/06/21 10:37 Blood Culture - Final Blood NO GROWTH AFTER 5 DAYS 06/06/21 10:44 Blood Culture - Final Blood NO GROWTH AFTER 5 DAYS 06/10/21 18:40 Legionella Urinary Antigen - Final Urine,Voided Bacterial Antigens - Final A&P Assessment and plan (1) Fever: Blood culture negative. Sputum culture growing MSSA. Extubated 06/09. COVID-[address] abdomen pelvis results appreciated. Gallbladder ultrasound negative for acalculous cholecystitis. The patient continues to spike. Cannot rule out early abdominal postoperative collections/abscess. C. difficile pending. Repeat blood cultures. For now continue with broad-spectrum antibiotics with vancomycin, Zosyn, Levaquin. We will continue to monitor and de-escalate antibiotics within the next 48 to 72 hours. Status: Acute (2) Acute encephalopathy: Wean down Precedex. Start on trazodone nightly and Zoloft every morning. Monitor for alcohol withdrawal. PT/OT. Ativan as needed. Continue with supportive care, reorienting. Status: Acute (3) Hypoxia: Extubated 06/09. Post multiple blood transfusion. Sputum culture growing MSSA. Has finished 10-day course of Zosyn. Antibiotic broadened to vancomycin and Levaquin yesterday. Oxygen supplementation keeping saturation over 92%. COVID-19 PCR negative. Status: Acute (4) Hemorrhage intraabdominal: Status: Acute (5) Spleen laceration: Post splenectomy, reexploration in OR on 06/02 Status: Acute Qualifiers: Encounter type: initial encounter Qualified Code(s): S36.039A - Unspecified laceration of spleen, initial encounter (6) Post-splenectomy: Currently on appropriate post splenectomy antibiotic prophylaxis with Piperacillin tazobactam. Ideally would prefer to administer PCV 13, Hib, meningococcal vaccines Menveo a nd Bexsero prior to discharge however currently we only have the pneumococcal vaccines (Prevnar 13 and pneumovax 23) available as inpatient. PCV 13 does not appear available on formulary, will confirm w pharmacy. - Pharmacy tells me we have PCV13. All of vaccination chronic, once fever subside with vaccination prior to discharge. PPSV 23 to follow 8 weeks post op. Hemophilus and meningococcal vaccine series to be completed as outpatient at least 2 weeks post-emergency splenectomy. Status: Acute (7) Alcohol intoxication: Ativan per [facility] protocol. Thiamine, folic acid, multivitamins. Status: Acute Qualifiers: Complication of substance-induced condition: with unspecified complication Qualified Code(s): F10.929 - Alcohol use, unspecified with intoxication, unspecified (8) Ventilator dependence: Extubated 06/09 Status: Acute (9) Shock: Resolved. Off Levophed. Overall has received 11 units PRBC, 4 units FFP,4 units platelet. Keep mean artery pressure over 65. Status: Acute (10) Acute blood loss anemia: No fresh bleeding. Hemoglobin stable at 8. Continue with prophylactic Lovenox. Status: Acute Additional A&P Information Pressure injury sacrum: Stage II. Dressed. Continue wound care. Resuming trial of oral diet. If tolerating protein supplements. Protonix for PUD prophylaxis. Lovenox and SCDs for DVT prophylaxis. Guarded prognosis. Discussed with surgery, RT, nursing staff. Discussed with father at bedside. Attestations Medical Necessity Statement*: Requires further hospitalization for post operative/splenectomy care, delirium, postoperative fevers Time Spent in Patient Care: Greater than 35 minutes (>than 50% of time spent in counselling and/or direct pt care on unit) . Coding Level of Care Code Acute Case Reviewer for g Fwd Diagnoses Fever R50.9 Acute encephalopathy G93.40 Hypoxia R09.02 Hemorrhage intraabdominal R58 Spleen laceration S36.039A Encounter type: initial encounter Post-splenectomy Z90.81 Alcohol intoxication F10.929 Complication of substance-induced condition: with unspecified complication Ventilator dependence Z99.11 Shock R57.9 Acute blood loss anemia D62
[2021-06-11] MEDS: ondansetron 2 mg/ML SDV 2 mL 4 MG IVP (18:33)
[2021-06-11] MEDS: acetaminophen 325 mg Tablet 650 MG PO (18:42)
[2021-06-11] MEDS: LORazepam 2 mg Tablet PO (18:43)
[2021-06-11] MEDS: levofloxacin-dextrose 5 % 750 MG/150 ML PREMIX 100 MG IV (19:27)
[2021-06-11] MEDS: dexmedeTOMIDine 0.9 % NaCL 400 MCG/100 ML PREMIX IV ×2 (19:40→19:43)
[2021-06-11] MEDS: trazodone 150 mg Tablet 75 MG PO (21:07)
--- NOTE | 2021-06-11 23:15 | PC.NURSE ---
Patient refuses to wear oxygen via nasal cannula, oxygen saturations while asleep are 87% or higher. When awake, oxygen saturations are 89-93% or greater.
[2021-06-12] VITALS (48 sets, daily range): BP systolic 97–162; BP diastolic 55–106; PULSE 77–105; RESP 11–39; TEMP 36.8–38.1; O2SAT 80–97; BMI 27.8
[2021-06-12] MEDS: vancomycin 1,500 MG/300 ML PIGGYBACK 200 MG IV (01:55)
[2021-06-12] MEDS: piperacillin-tazobactam 3.375 GM in sodium chloride 0.9% (plus) 50 ML IV ×2 (01:55→08:25)
[2021-06-12] MEDS: dexmedeTOMIDine 0.9 % NaCL 400 MCG/100 ML PREMIX 5.44 MCG IV (02:24)
--- NOTE | 2021-06-12 03:21 | PC.NURSE ---
Addendum entered by Danielle Wiley RN 06/13/21 04:45: Witnessed waste Original Note: Wasted fentanyl and versed drips from when patient was previously intubated. Second witness was YULIA Santos.
[2021-06-12 04:53] LABS: Basophils # 0.2 10^3/uL (0.0-0.1); Basophils % 0.9 %; Eosinophils # 0.6 10^3/uL (0.0-0.8); Eosinophils % 3.2 %; Hematocrit 27.5 % (42.0-52.0); Hemoglobin 8.7 g/dL (11.7-16.6); Lymphocytes % 10.3 %; Mean Corpuscular HGB Conc 31.6 g/dL (30.0-36.0); Mean Corpuscular Hemoglobin 28.8 pg (28.0-34.0); Mean Corpuscular Volume 91.1 fl (80-94); Mean Platelet Volume 10.7 fL (7.4-10.4); Monocytes # 1.5 10^3/uL (0.2-0.9); Monocytes % 7.6 %; Neutrophils # 15.07 10^3/uL (1.8-7.7); Neutrophils % 76.1 %; Nucleated Red Blood Cells # 0.3 /100WBC; Nucleated Red Blood Cells % 1.3 %; Platelet Count 669 10^3/cmm (130-400); Red Blood Count 3.02 10^6/uL (4.1-5.3); Red Cell Distribution Width 14.6 % (12.1-15.1); White Blood Count 19.8 10^3/uL (4.0-10.0)
[2021-06-12 05:18] LABS: Alanine Aminotransferase 47 U/L (0-41); Albumin Level 2.8 g/dL (3.5-5.2); Alkaline Phosphatase 264 IU/L (40-130); Anion Gap 16.7 (5-19); Aspartate Amino Transferase 33 U/L (0-40); Blood Urea Nitrogen 12 mg/dL (6-20); Calcium 7.8 mg/dL (8.5-10.5); Carbon Dioxide 18 mmol/L (22-29); Chloride 108 mmol/L (98-107); Globulin 3.3 g/dL (1.3-4.6); Glomerular Filtration Rate 124.9 mL/min (90-130); Glucose 95 mg/dL (65-115); Osmolality Calculated 288 mOsm/kg (285-295); Potassium 3.7 mmol/L (3.5-5.1); Sodium 139 mmol/L (136-145); Total Bilirubin 0.4 mg/dL (0.15-1.2); Total Protein 6.1 g/dL (6.6-8.7)
--- NOTE | 2021-06-12 06:29 | PC.NURSE ---
Patient remained stable throughout the night. Remained alert and oriented, still made a few inappropriate comments to nursing staff. Precedex turned back on due to some withdrawal symptoms and restlessness trying to get up. Patient was between normal sinus to sinus tachycardia. Patient would intermittently refuse to wear oxygen and take it off. Other times he would leave it on. He would primarily take it off when sleeping and oxygen saturations would be upper 80's to low 90's, but with oxygen on 2LNC he would maintain an oxygen saturation of 90% or greater. Adequate urine output. Had one incontinent urine episode. Patient received a full bath. No further concerns at this time.
[2021-06-12] MEDS: pantoprazole 40 mg SDV IVP (08:24)
[2021-06-12] MEDS: guaiFENesin 600 mg Tablet 1200 MG PO ×2 (08:24→17:12)
[2021-06-12] MEDS: multivitamin therapeutic Tablet 1 TAB PO (08:25)
[2021-06-12] MEDS: folic acid 1 mg Tablet PO (08:25)
[2021-06-12] MEDS: sertraline 50 mg Tablet 25 MG PO (08:25)
[2021-06-12] MEDS: thiamine 100 mg Tablet PO (08:25)
[2021-06-12] MEDS: sodium chloride 0.9% 1,000 ML 50 ML IV (09:40)
[2021-06-12 10:04] LABS: Vancomycin Trough 20.6 ug/mL (10-15)
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
[2021-06-12] MEDS: enoxaparin 40 mg/0.4 mL Syringe SUBCUT (10:31)
[2021-06-12 10:52] LABS: Influenza A by IFA Negative (Negative); Influenza B by IFA Negative (Negative)
[2021-06-12 11:04] LABS: D Dimer >= 20.00 ug/mIFEU (0-0.59)
[2021-06-12] MEDS: vancomycin 1,000 MG in sodium chloride 0.9% 250 ML 250 MG IV ×2 (12:19→20:19)
[2021-06-12] MEDS: ondansetron 2 mg/ML SDV 2 mL 4 MG IVP (14:05)
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
[2021-06-12] MEDS: enoxaparin 100 mg/mL Syringe SUBCUT (15:19)
[2021-06-12] MEDS: levofloxacin-dextrose 5 % 750 MG/150 ML PREMIX 100 MG IV (16:35)
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
--- NOTE | 2021-06-12 17:56 | PC.NURSE ---
Shift Note Frequent safety and comfort rounds continue. Orders and/or nursing care completed as indicated. Patient monitored for response to intervention and treatment(s). Education provided includes treatment plan, medications, need for movement and to stay up in chair, and discharge plan. Pt verbalizes understanding. Asks questions. Started on increased lovenox dose d/t DVT in RLE. C/O some pain in R calf. Able to tx to bsc with minimal assist. Sitting up in chair visiting with family and eating dinner at this time. Precedex turned off this AM, no issues throughout the day. VSS. Will continue to monitor.
[2021-06-12] MEDS: trazodone 150 mg Tablet 75 MG PO (20:18)
--- NOTE | 2021-06-12 23:43 | PC.NURSE ---
i reported high pulse 103 to nurse
[2021-06-13] VITALS (7 sets, daily range): BP systolic 135–149; BP diastolic 77–89; PULSE 90–108; RESP 14–18; TEMP 36.5–37.4; O2SAT 90–96
[2021-06-13] MEDS: enoxaparin 100 mg/mL Syringe SUBCUT ×2 (02:18→15:05)
[2021-06-13 04:18] LABS: Basophils # 0.1 10^3/uL (0.0-0.1); Basophils % 0.7 %; Eosinophils # 0.4 10^3/uL (0.0-0.8); Eosinophils % 1.9 %; Hematocrit 27.2 % (42.0-52.0); Hemoglobin 8.7 g/dL (11.7-16.6); Lymphocytes # 2.4 10^3/uL (0.8-4.8); Lymphocytes % 12.7 %; Mean Corpuscular Hemoglobin 28.6 pg (28.0-34.0); Mean Corpuscular Volume 89.5 fl (80-94); Mean Platelet Volume 10.4 fL (7.4-10.4); Monocytes # 1.5 10^3/uL (0.2-0.9); Monocytes % 7.7 %; Neutrophils # 14.44 10^3/uL (1.8-7.7); Neutrophils % 75.6 %; Nucleated Red Blood Cells # 0.2 /100WBC; Nucleated Red Blood Cells % 1.2 %; Platelet Count 844 10^3/cmm (130-400); Red Blood Count 3.04 10^6/uL (4.1-5.3); Red Cell Distribution Width 14.3 % (12.1-15.1); White Blood Count 19.1 10^3/uL (4.0-10.0)
[2021-06-13 04:58] LABS: Alanine Aminotransferase 54 U/L (0-41); Albumin Level 2.9 g/dL (3.5-5.2); Alkaline Phosphatase 251 IU/L (40-130); Anion Gap 15.3 (5-19); Aspartate Amino Transferase 33 U/L (0-40); Blood Urea Nitrogen 7 mg/dL (6-20); Calcium 7.9 mg/dL (8.5-10.5); Carbon Dioxide 19 mmol/L (22-29); Chloride 109 mmol/L (98-107); Globulin 3.5 g/dL (1.3-4.6); Glomerular Filtration Rate 124.9 mL/min (90-130); Glucose 107 mg/dL (65-115); Osmolality Calculated 288 mOsm/kg (285-295); Potassium 3.3 mmol/L (3.5-5.1); Sodium 140 mmol/L (136-145); Total Bilirubin 0.3 mg/dL (0.15-1.2); Total Protein 6.4 g/dL (6.6-8.7)
[2021-06-13] MEDS: vancomycin 1,000 MG in sodium chloride 0.9% 250 ML 250 MG IV ×3 (05:35→20:10)
[2021-06-13] MEDS: sodium chloride 0.9% 1,000 ML 50 ML IV (05:39)
[2021-06-13] MEDS: sertraline 50 mg Tablet 25 MG PO (08:42)
[2021-06-13] MEDS: pantoprazole 40 mg SDV IVP (08:42)
[2021-06-13] MEDS: thiamine 100 mg Tablet PO (08:42)
[2021-06-13] MEDS: folic acid 1 mg Tablet PO (08:42)
[2021-06-13] MEDS: multivitamin therapeutic Tablet 1 TAB PO (08:42)
[2021-06-13] MEDS: guaiFENesin 600 mg Tablet 1200 MG PO ×2 (08:42→17:46)
--- NOTE | 2021-06-13 11:07 | PC.CHAP ---
Pastoral Care Encounter/Spiritual Assessment Type of Contact [] Declined light out examiner visit [] Patient/Family/Request visit [] Outpatient visit [] Follow-up visit [] Physician referral [] Code/Alert [x] Routine visit [] Staff referral [] Actively dying [] Patient sleeping [] Family support [] [] Out of room [] Palliative care [] [] Receiving care in room [] Pre-surgical visit [] Trauma [] Long length of stay [] ICU visit [] Other: Relational/Emotional Strength [x] Patient feels connected with others/family/visitors/staff [] Distress [] Loneliness/isolation [] Abandonment Spirituality of Patient [x] Person of Hellen [x] Attends Voodoo of their Hellen [x] Believes in Prayer [] Reads Bible or Hinduism materials [] There are Spiritual issues to be addressed Medical Artist Interventions [x] Prayer []x Active listening [x] Non-anxious presence [x] Spiritual/emotional support [] Crisis/trauma care [] Spiritual counseling [] Bereavement support [] Provided bereavement packet [] Provided Bible/devotional materials [] Provided toy/stuffed animal, coloring book to patient or family member [] Provided Communion [] Anointing/[place] [] Salvation [x] Completed spiritual assessment [] Other: Impact on Illness or Injury [] Angry [] Fearful [] Anxious [] Often cries [] Exhaustion [] Unable to work [] Unable to attend orthodoxy [] Unable to walk/stand [] Unable to read [] Unable to drive [] Unable to eat/drink [] Unable to sleep [] Unable to be with family [] Patient intubated [] Other: Summary patient doing so good gives God all the glory Time spent with patient
[2021-06-13] MEDS: potassium chloride ER 20 mEq Tablet 40 MEQ PO (11:42)
--- NOTE | 2021-06-13 15:33 | P.PN_ITS ---
Subjective Subjective: Interval history: Events overnight. Has been off Precedex. On MedSurg today. Seen with family at bedside. Awake and alert. Complaining of mild nausea and abdominal pain. Awake and alert. Vitals/I&O/Wt Last Vital Signs Temp 98.5 F 06/13/21 12:00 Pulse 96 06/13/21 12:00 Resp 17 06/13/21 12:00 BP 143/87 06/13/21 12:00 Pulse Ox 96 06/13/21 12:00 06/13/21 06/13/21 06/13/21 06:59 14:59 22:59 Intake Total 1449.167 / 3453.804 100 / 100 Output Total 300 / 1400 50 / 50 Balance 1149.167 / 2053.804 -50 / -50 100 / 50 Weight last 48 hrs Weight 90.537 kg Weight 95.708 kg Physical Exam Narrative: EXAM NARRATIVE: General: Awake, alert, no acute distress, slightly drowsy HEENT: PERRLA, pupils bilaterally equal and reactive Chest: Normal vesicular breath sounds bilaterally, occasional rhonchi in b ilateral lower zone CVS: S1-S2 regular, no tachycardia, no gallops, no rubs Abdomen: Soft generally other than mild guarding present in left lower quadrant, midline post op dressing in place Neuro: Moving all 4 limbs, no facial deformity, power 5 x 5 all limbs Data : 06/13/21 04:09 06/13/21 04:09 Micro: Microbiology 06/10/21 19:50 Catheter Tip Culture - Final Central Line 06/11/21 17:28 Blood Culture - Preliminary Blood NEGATIVE TO DATE 06/11/21 17:24 Blood Culture - Preliminary Blood NEGATIVE TO DATE A&P Assessment and plan (1) Fever: Blood culture negative. Sputum culture growing MSSA. Extubated 06/09. COVID-[address] abdomen pelvis results appreciated. Gallbladder ultrasound negative for acalculous cholecystitis. The patient continues to spike. Cannot rule out early abdominal postoperative collections/abscess. C. difficile pending. Repeat blood cultures sent on 06/11. So far negative. Central lines, Cordero catheter removed on 06/10. For now continue with broad-spectrum antibiotics with vancomycin, Zosyn, Levaquin. For now we will continue the IV antibiotics. If blood cultures remain negative tomorrow can discontinue antibiotics and monitor for next 24 to 48 hours. D-dimer elevated. Lower limb Dopplers consistent with DVT. Could be noninfectious cause of fever as well. Started on full dose anticoagulation. Status: Acute (2) Acute encephalopathy: Off Precedex. Continue with trazodone nightly and Zoloft every morning. Monitor for alcohol withdrawal. PT/OT. Ativan as needed. Continue with supportive care, reorienting. Status: Acute (3) Hypoxia: Extubated 06/09. Post multiple blood transfusion. Sputum culture growing MSSA. Has finished 10-day course of Zosyn. Antibiotic broadened to vancomycin and Levaquin yesterday. Oxygen supplementation keeping saturation over 92%. COVID-19 PCR negative. Status: Acute (4) Hemorrhage intraabdominal: Status: Acute (5) Spleen laceration: Post splenectomy, re-exploration in OR on 06/02 Status: Acute Qualifiers: Encounter type: initial encounter Qualified Code(s): S36.039A - Unspecified laceration of spleen, initial encounter (6) Post-splenectomy: Currently on appropriate post splenectomy antibiotic prophylaxis with Piperacillin tazobactam. Ideally would prefer to administer PCV 13, Hib, meningococcal vaccines Menveo and Bexsero prior to discharge however currently we only have the pneumococcal vaccines (Prevnar 13 and pneumovax 23) available as inpatient. PCV 13 does not appear available on formulary, will confirm w pharmacy. Pharmacy tells me we have PCV13. All of vaccination chronic, once fever subside with vaccination prior to discharge. PPSV 23 to follow 8 weeks post op. Hemophilus and meningococcal vaccine series to be completed as outpatient at least 2 weeks post-emergency splenectomy. Status: Acute (7) Alcohol intoxication: Ativan per [facility] protocol. Thiamine, folic acid, multivitamins. Status: Acute Qualifiers: Complication of substance-induced condition: with unspecified complication Qualified Code(s): F10.929 - Alcohol use, unspecified with intoxication, unspecified (8) Ventilator dependence: Extubated 06/09 Status: Acute (9) Shock: Resolved. Off Levophed. Overall has received 11 units PRBC, 4 units FFP,4 units platelet. Keep mean artery pressure over 65. Status: Acute (10) Acute blood loss anemia: No fresh bleeding. Hemoglobin stable at 8. Continue with prophylactic Lovenox. Status: Acute (11) DVT (deep venous thrombosis): Seen on lower limb Dopplers. Switch to full dose Lovenox 1 mg/kg body weight every 12 hourly. Will need treatment at least for next 6 months. Monitor hemoglobin. Will need to switch to Eliquis 5 mg twice daily on discharge. Status: Acute Additional A&P Information Pressure injury sacrum: Stage II. Dressed. Continue wound care. Resuming trial of oral diet. If tolerating protein supplements. Protonix for PUD prophylaxis. Care discussed in detail with primary team. Attestations Medical Necessity Statement*: As per primary team. Time Spent in Patient Care: 16 - 35 minutes (>than 50% of time spent in counselling and/or direct pt care on unit) . Coding Level of Care Code Acute Stone Breaker for [facility] Fwd Diagnoses Fever R50.9 Acute encephalopathy G93.40 Hypoxia R09.02 Hemorrhage intraabdominal R58 Spleen laceration S36.039A Encounter type: initial encounter Post-splenectomy Z90.81 Alcohol intoxication F10.929 Complication of substance-induced condition: with unspecified complication Ventilator dependence Z99.11 Shock R57.9 Acute blood loss anemia D62 DVT (deep venous thrombosis) I82.409
--- NOTE | 2021-06-13 16:30 | P.PN_ITS ---
Subjective Subjective: Interval history: Patient had an episode of emesis but otherwise denies significant abdominal pain, tolerating soft diet, had bowel movements today. Patient is ambulating with a walker Vitals/I&O/Wt Last Vital Signs Temp 98.5 F 06/13/21 15:48 Pulse 90 06/13/21 15:48 Resp 18 06/13/21 15:48 BP 145/84 06/13/21 15:48 Pulse Ox 96 06/13/21 15:48 06/13/21 06/13/21 06/13/21 06:59 14:59 22:59 Intake Total 1449.167 / 3453.804 100 / 100 Output Total 300 / 1400 50 / 50 Balance 1149.167 / 2053.804 -50 / 50 100 / 50 Weight last 48 hrs Weight 199 lb 9.6 oz Weight 211 lb Physical Exam Narrative: EXAM NARRATIVE: Abdomen: Soft, minimally tender, nondistended, incision clean dry and intact, COLE drain serosanguineous Data : 06/14/21 05:33 06/14/21 05:33 Micro: Microbiology 06/10/21 19:50 Catheter Tip Culture - Final Central Line 06/11/21 17:28 Blood Culture - Preliminary Blood NEGATIVE TO DATE 06/11/21 17:24 Blood Culture - Preliminary Blood NEGATIVE TO DATE A&P Assessment and plan (1) H/O splenectomy: 41-year-old male status post splenectomy for traumatic grade 5 splenic laceration who had to be taken back to surgery for postop bleeding. Hemoglobin at 8.7: Continue to monitor, Ultrasound lower extremity showed DVT peroneal vessel, Lovenox 100 mg subcu twice daily WBC: Stable at 19, has been afebrile since 4 AM yesterday, blood cultures negative CT abdomen pelvis did not show any drainable collections, COVID-19, negative Chest x-ray showed right-sided pneumonia Continue vancomycin and Levaquin with Zosyn Lactulose 15 cc twice daily Continue Protonix for GI prophylaxis SCD for DVT prophylaxis Status: Acute Attestations Medical Necessity Statement*: Status post splenectomy on IV antibiotics as patient has persistent leukocytosis Coding Level of Care Code Acute Powder And Primer Canning Leader for Chg Fwd Diagnoses H/O splenectomy Z90.81
[2021-06-13] MEDS: levofloxacin-dextrose 5 % 750 MG/150 ML PREMIX 100 MG IV (17:45)
[2021-06-13] MEDS: ondansetron 2 mg/ML SDV 2 mL 4 MG IVP (17:45)
[2021-06-13] MEDS: trazodone 150 mg Tablet 75 MG PO (20:10)
[2021-06-13] MEDS: pantoprazole DR 40 mg Tablet PO (20:11)
[2021-06-14] VITALS (9 sets, daily range): BP systolic 125–147; BP diastolic 64–85; PULSE 81–96; RESP 16–19; TEMP 36.4–37.1; O2SAT 91–98
[2021-06-14] MEDS: sodium chloride 0.9% 1,000 ML 50 ML IV (01:52)
[2021-06-14] MEDS: enoxaparin 100 mg/mL Syringe SUBCUT (01:52)
[2021-06-14] MEDS: vancomycin 1,000 MG in sodium chloride 0.9% 250 ML 250 MG IV (05:12)
[2021-06-14 06:19] LABS: Basophils # 0.1 10^3/uL (0.0-0.1); Basophils % 0.7 %; Eosinophils # 0.3 10^3/uL (0.0-0.8); Eosinophils % 1.5 %; Hematocrit 27.6 % (42.0-52.0); Hemoglobin 8.6 g/dL (11.7-16.6); Lymphocytes # 2.7 10^3/uL (0.8-4.8); Lymphocytes % 16.2 %; Mean Corpuscular HGB Conc 31.2 g/dL (30.0-36.0); Mean Corpuscular Volume 89.9 fl (80-94); Mean Platelet Volume 12.1 fL (7.4-10.4); Monocytes # 1.5 10^3/uL (0.2-0.9); Monocytes % 8.6 %; Neutrophils # 12.07 10^3/uL (1.8-7.7); Neutrophils % 71.5 %; Nucleated Red Blood Cells # 0.1 /100WBC; Nucleated Red Blood Cells % 0.6 %; Platelet Count 797 10^3/cmm (130-400); Red Blood Count 3.07 10^6/uL (4.1-5.3); Red Cell Distribution Width 14.3 % (12.1-15.1); White Blood Count 16.9 10^3/uL (4.0-10.0)
[2021-06-14 06:48] LABS: Alanine Aminotransferase 57 U/L (0-41); Albumin Level 2.7 g/dL (3.5-5.2); Alkaline Phosphatase 238 IU/L (40-130); Anion Gap 16.2 (5-19); Aspartate Amino Transferase 37 U/L (0-40); Blood Urea Nitrogen 6 mg/dL (6-20); Calcium 7.8 mg/dL (8.5-10.5); Carbon Dioxide 19 mmol/L (22-29); Chloride 107 mmol/L (98-107); Globulin 3.6 g/dL (1.3-4.6); Glomerular Filtration Rate 124.9 mL/min (90-130); Glucose 138 mg/dL (65-115); Osmolality Calculated 288 mOsm/kg (285-295); Potassium 3.2 mmol/L (3.5-5.1); Sodium 139 mmol/L (136-145); Total Bilirubin 0.3 mg/dL (0.15-1.2); Total Protein 6.3 g/dL (6.6-8.7)
[2021-06-14] MEDS: thiamine 100 mg Tablet PO (09:12)
[2021-06-14] MEDS: folic acid 1 mg Tablet PO (09:12)
[2021-06-14] MEDS: sertraline 50 mg Tablet 25 MG PO (09:12)
[2021-06-14] MEDS: guaiFENesin 600 mg Tablet 1200 MG PO ×2 (09:12→17:40)
[2021-06-14] MEDS: multivitamin therapeutic Tablet 1 TAB PO (09:12)
[2021-06-14] MEDS: pantoprazole DR 40 mg Tablet PO ×2 (09:13→20:31)
--- NOTE | 2021-06-14 10:59 | P.PN_ITS ---
Subjective Subjective: Interval history: Patient has been doing well denies any nausea but had 1 episode of vomiting last night. Patient has been having bowel movements. He has been afebrile for over 48 hours Vitals/I&O/Wt Last Vital Signs Temp 98.5 F 06/14/21 07:47 Pulse 81 06/14/21 08:46 Resp 16 06/14/21 08:46 BP 132/75 06/14/21 07:47 Pulse Ox 91 06/14/21 08:46 06/13/21 06/14/21 06/14/21 22:59 06:59 14:59 Intake Total 1190 / 2900 1710 / 2900 442.5 / 442.5 Output Total Balance 1190 / 2849 1709 / 2849 442.5 / 442.5 Weight last 48 hrs Weight 199 lb 9.6 oz Physical Exam Narrative: EXAM NARRATIVE: Abdomen: Soft, Nondistended, minimally tender, incision clean dry and intact, COLE drain was removed yesterday Data : 06/14/21 05:33 06/14/21 05:33 Micro: Microbiology 06/10/21 19:50 Catheter Tip Culture - Final Central Line A&P Assessment and plan (1) H/O splenectomy: 41-year-old male status post splenectomy for traumatic grade 5 splenic laceration who had to be taken back to surgery for postop bleeding. Hemoglobin at 8.6: Continue to monitor, WBC: 16 K today, has been afebrile for 48 hours, DC Levaquin, imipenem and vancomycin CT abdomen pelvis did not show any drainable collections, COVID-19 negative Chest x-ray showed right-sided pneumonia Changed to senna S twice daily, DC lactulose Regular diet Start Eliquis 10 mg p.o. twice daily, DC Lovenox for DVT Continue Protonix for GI prophylaxis SCD patient continues to be afebrile, he can go home in the next 24 to 48 hours. Patient will need postsplenectomy vaccinations Status: Acute Attestations Medical Necessity Statement*: patient has been afebrile for 48 hours, antibio tics have been discontinued, if he remains afebrile he can go home in the next 24 to 48 hours Coding Level of Care Code Acute Apprentice Carpenter for Roman Moseley Diagnoses H/O splenectomy Z90.81
--- NOTE | 2021-06-14 18:53 | P.PN_ITS ---
Subjective Subjective: Interval history: patient reports feeling better. Appetite improving. No pain. Denies dyspnea Vitals/I&O/Wt Last Vital Signs Temp 98.0 F 06/14/21 15:31 Pulse 91 06/14/21 15:31 Resp 18 06/14/21 15:31 BP 127/76 06/14/21 15:31 Pulse Ox 94 06/14/21 15:31 06/14/21 06/14/21 06/14/21 06:59 14:59 22:59 Intake Total 1710 / 2900 922.5 / 922.5 Output Total Balance 1709 / 2849 922.5 / 922.5 Weight last 48 hrs Weight 89.63 kg Weight 90.537 kg Physical Exam Narrative: EXAM NARRATIVE: alert, oriented Const: COMMON NORMALS: patient oriented x3 HENMT: COMMON NORMALS: normocephalic, atraumatic and hearing grossly normal bilaterally HEAD & SCALP: normocephalic and atraumatic Eye: COMMON NORMALS: Equal, round and reactive pupils present, EOMs intact bilaterally, conjunctivae normal and no scleral icterus CONJUNCTIVA: Yes conjunctivae normal PUPIL: Yes Equal, round and reactive pupils present Neck/C-Spine: COMMON NORMALS: full ROM, no lymphadenopathy, supple, no meningeal signs, no JVD and Thyroid normal GENERAL: Yes normal visual inspection THYROID: Thyroid normal Chest: COMMONS NORMALS: normal inspection of the chest Resp: COMMON NORMALS: normal respiratory effort, No retractions and clear to auscultation bilaterally AUSCULTATION: clear to auscultation bilaterally Cardio: COMMON NORMALS: no JVD, regular rate, regular rhythm, S1 normal heart sound present, S2 normal heart sound present and No murmurs present (Cardio) JUGULAR VENOUS DISTENTION: no JVD RATE: regular rate RHYTHM: regular rhythm HEART SOUNDS: S1 normal heart sound present and S2 normal heart sound present GI: COMMON NORMALS: Soft to palpation, non-tender and no masses PALPATION: Yes Soft to palpation Extremity: COMMON NORMALS: normal to inspection, no calf tenderness and no pedal edema Neuro: COMMON NORMALS: patient oriented x3, moves all extremities and no sensory deficits noted MENINGEAL SIGNS: Yes no meningeal signs Psych: COMMON NORMALS: cooperative and activity/motor behavior normal ATTITUDE: Yes calm Skin: COMMON NORMALS: no rashes or lesions noted, no wounds, turgor normal, no jaundice and no petechiae GENERAL SKIN EXAM: no rashes or lesions noted and turgor normal Data : 06/14/21 05:33 06/14/21 05:33 A&P Assessment and plan (1) Fever: Blood culture negative. Sputum culture growing MSSA. Extubated 06/09. COVID-[address] abdomen pelvis results appreciated. Gallbladder ultrasound negative for acalculous cholecystitis. The patient continues to spike. Cannot rule out early abdominal postoperative collections/abscess. C. difficile negative Repeat blood cultures sent on 06/11. So far negative. Central lines, Cordero catheter removed on 06/10. He is now off antibiotics and remains afebrile without signs of acute infection D-dimer elevated. Lower limb Dopplers consistent with DVT. Switched to PO eliquis Status: Acute (2) Acute encephalopathy: Resolved. Alert and oriented Status: Acute (3) Hypoxia: Resolved. On room air Status: Acute (4) Hemorrhage intraabdominal: Status: Acute (5) Spleen laceration: Post splenectomy, re-exploration in OR on 06/02 Status: Acute Qualifiers: Encounter type: initial encounter Qualified Code(s): S36.039A - Unspecified laceration of spleen, initial encounter (6) Post-splenectomy: Ideally would prefer to administer PCV 13, Hib, meningococcal vaccines Menveo and Bexsero prior to discharge however currently we only have the pneumococcal vaccines PCV 13 All of vaccination chronic, once fever subside with vaccination prior to discharge. PPSV 23 to follow 8 weeks post op. Hemophilus and meningococcal vaccine series to be completed as outpatient at least 2 weeks post-emergency splenectomy. Status: Acute (7) Alcohol intoxication: Ativan per [facility] protocol. Thiamine, folic acid, multivitamins. Status: Acute Qualifiers: Complication of substance-induced condition: with unspecified complication Qualified Code(s): F10.929 - Alcohol use, unspecified with intoxication, unspecified (8) Ventilator dependence: Extubated 06/09 Status: Acute (9) Shock: Resolved. Status: Acute (10) Acute blood loss anemia: stable hemoglobin Status: Acute (11) DVT (deep venous thrombosis): Seen on lower limb Dopplers. on PO eliquis Status: Acute Additional A&P Information Pressure injury sacrum: Stage II. Dressed. Continue wound care. Resuming tri al of oral diet. If tolerating protein supplements. Protonix for PUD prophylaxis. Care discussed in detail with primary team. Attestations Medical Necessity Statement*: Patient requires ongoing hospitalization for management of acute medical problems and safe discharge planning Coding Level of Care Code Acute Strategic Planning Director for Chg Fwd Diagnoses Fever R50.9 Acute encephalopathy G93.40 Hypoxia R09.02 Hemorrhage intraabdominal R58 Spleen laceration S36.039A Encounter type: initial encounter Post-splenectomy Z90.81 Alcohol intoxication F10.929 Complication of substance-induced condition: with unspecified complication Ventilator dependence Z99.11 Shock R57.9 Acute blood loss anemia D62 DVT (deep venous thrombosis) I82.409
[2021-06-14] MEDS: acetaminophen 325 mg Tablet 650 MG PO (19:46)
[2021-06-14] MEDS: apixaban 5 mg Tablet 10 MG PO (20:31)
[2021-06-14] MEDS: trazodone 150 mg Tablet 75 MG PO (22:17)
[2021-06-15] VITALS: BP 120/69; PULSE 77; RESP 19; TEMP 36.4; O2SAT 92
[2021-06-15 04:00] VITALS: BP 142/78; PULSE 79; RESP 19; TEMP 37.3; O2SAT 94
[2021-06-15 08:00] VITALS: BP 145/88; PULSE 91; RESP 16; TEMP 36.6; O2SAT 96
[2021-06-15] MEDS: folic acid 1 mg Tablet PO (08:07)
[2021-06-15] MEDS: sertraline 50 mg Tablet 25 MG PO (08:07)
[2021-06-15] MEDS: multivitamin therapeutic Tablet 1 TAB PO (08:07)
[2021-06-15] MEDS: pantoprazole DR 40 mg Tablet PO (08:07)
[2021-06-15] MEDS: sennosides-docusate Tablet 1 TAB PO (08:07)
[2021-06-15] MEDS: apixaban 5 mg Tablet 10 MG PO (08:07)
[2021-06-15] MEDS: thiamine 100 mg Tablet PO (08:07)
[2021-06-15] MEDS: guaiFENesin 600 mg Tablet 1200 MG PO (08:07)
--- NOTE | 2021-06-15 08:16 | PC.NURSE ---
Patient awake alert and oriented, denies pain, discussed plan of care, verbalized understanding, denies further questions or concerns.
[2021-06-15 09:46] VITALS: PULSE 87; RESP 16; O2SAT 97
[2021-06-15 10:54] VITALS: BP 143/89; PULSE 82; RESP 16; TEMP 36.7; O2SAT 94
--- NOTE | 2021-06-15 12:05 | PC.NURSE ---
patient reports having minor nose bleeds or blood when blowing nose after the eliquis was started, Dr. Hyde notified.
--- NOTE | 2021-06-15 12:50 | PM.PN ---
Subjective Subjective: Interval history: Patient has been afebrile for 3 days, no nausea or vomiting, tolerating regular diet, had bowel movements Vitals/I&O/Wt Last Vital Signs Temp 98.0 F 06/15/21 10:54 Pulse 82 06/15/21 10:54 Resp 16 06/15/21 10:54 BP 143/89 06/15/21 10:54 Pulse Ox 94 06/15/21 10:54 06/14/21 06/15/21 06/15/21 22:59 06:59 14:59 Intake Total 300 / 2222.5 1000 / 2222.5 Balance 300 / 2222.5 1000 / 2222.5 Weight last 48 hrs Weight 193 lb 4.8 oz Weight 197 lb 9.6 oz Physical Exam Narrative: EXAM NARRATIVE: Soft, nontender, nonrigid, incision clean dry and intact Data : 06/14/21 05:33 06/14/21 05:33 A&P Assessment and plan (1) H/O splenectomy: 41-year-old male status post splenectomy for traumatic grade 5 splenic laceration who had to be taken back to surgery for postop bleeding. Febrile for 3 days, DC home today Patient to receive vaccinations as outpatient Status: Acute Attestations Medical Necessity Statement*: DC home today Coding Level of Care Code Acute Handbag Finisher for Roman Moseley Diagnoses H/O splenectomy Z90.81
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
--- NOTE | 2021-06-15 14:09 | PM.PN ---
Subjective Subjective: Interval history: Patient feels better. No pain. No dyspnea. Stable for discharge Medications: Reviewed: Yes Vitals/I&O/Wt Last Vital Signs Temp 98.0 F 06/15/21 10:54 Pulse 82 06/15/21 10:54 Resp 16 06/15/21 10:54 BP 143/89 06/15/21 10:54 Pulse Ox 94 06/15/21 10:54 06/14/21 06/15/21 06/15/21 22:59 06:59 14:59 Intake Total 300 / 1222.5 1000 / 2222.5 Balance 300 / 1222.5 1000 / 2222.5 Weight last 48 hrs Weight 87.679 kg Weight 89.63 kg Physical Exam Narrative: EXAM NARRATIVE: alert, oriented , awaiting D/C Const: COMMON NORMALS: patient oriented x3 HENMT: COMMON NORMALS: normocephalic, atraumatic and external ears normal HEAD & SCALP: normocephalic and atraumatic EXTERNAL EAR: Yes external ears normal Eye: COMMON NORMALS: Equal, round and reactive pupils present, conjunctivae normal and no scleral icterus CONJUNCTIVA: Yes conjunctivae normal PUPIL: Yes Equal, round and reactive pupils present Neck/C-Spine: COMMON NORMALS: full ROM, supple, no JVD and Thyroid normal THYROID: Thyroid normal Chest: COMMONS NORMALS: normal inspection of the chest Resp: COMMON NORMALS: clear to auscultation bilaterally EFFORT & INSPECTION: Yes symmetric chest movement AUSCULTATION: clear to auscultation bilaterally Cardio: COMMON NORMALS: no JVD, regular rate, regular rhythm, S1 normal heart sound present, S2 normal heart sound present and No murmurs present (Cardio) RATE: regular rate RHYTHM: regular rhythm HEART SOUNDS: S1 normal heart sound present and S2 normal heart sound present GI: COMMON NORMALS: Soft to palpation, non-tender and no masses PALPATION: Yes Soft to palpation : COMMON NORMALS: Yes no CVA tenderness BLADDER/KIDNEY EXAM: Yes no CVA tenderness Back/Pelvis: COMMON NORMALS: no CVA tenderness and no thoracic nor lumbar tenderness Extremity: COMMON NORMALS: no clubbing, cyanosis or edema and no pedal edema Neuro: COMMON NORMALS: patient oriented x3, moves all extremities and no sensory deficits noted Psych: COMMON NORMALS: mental status grossly normal and cooperative ATTITUDE: Yes calm Skin: COMMON NORMALS: no rashes or lesions noted, no wounds and turgor normal GENERAL SKIN EXAM: no rashes or lesions noted and turgor normal Data : 06/14/21 05:33 06/14/21 05:33 A&P Assessment and plan (1) Fever: Afebrile, cultures negative. Off antibiotics Ready for D/C On eliquis for acute DVT- needs 6 months Status: Acute (2) Acute encephalopathy: Resolved. Alert and oriented Status: Acute (3) Hypoxia: Resolved. On room air Status: Acute (4) Hemorrhage intraabdominal: Resolved Status: Acute (5) Spleen laceration: Post splenectomy, re-exploration in OR on 06/02 Status: Acute Qualifiers: Encounter type: initial encounter Qualified Code(s): S36.039A - Unspecified laceration of spleen, initial encounter (6) Post-splenectomy: Patient to receive vaccinations within 2 weeks of D/C at outpatient pharmacy- PCV 13, Hib, meningococcal vaccines Menveo and Bexsero Status: Acute (7) Alcohol intoxication: resolved Status: Acute Qualifiers: Complication of substance-induced condition: with unspecified complication Qualified Code(s): F10.929 - Alcohol use, unspecified with intoxication, unspecified (8) Ventilator dependence: Extubated 06/09 Status: Acute (9) Shock: Resolved. Status: Acute (10) Acute blood loss anemia: stable hemoglobin Status: Acute (11) DVT (deep venous thrombosis): Seen on lower limb Dopplers. on PO eliquis Status: Acute Additional A&P Information Care discussed in detail with primary team. Attestations Medical Necessity Statement*: Patient stable for D/C per primary attending Coding Level of Care Code Acute Caramel Cutter Helper for Chg Fwd Exam Comprehensive Diagnoses Fever R50.9 Acute encephalopathy G93.40 Hypoxia R09.02 Hemorrhage intraabdominal R58 Spleen laceration S36.039A Encounter type: initial encounter Post-splenectomy Z90.81 Alcohol intoxication F10.929 Complication of substance-induced condition: with unspecified complication Ventilator dependence Z99.11 Shock R57.9 Acute blood loss anemia D62 DVT (deep venous thrombosis) I82.409
[2021-06-15 14:22] VITALS: BP 143/89; PULSE 82; RESP 16; TEMP 36.7; O2SAT 94
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
== END 2021-06-15 14:47 | disposition home or self-care (01) | DRG 799 ==
LOC: ER 23:53 → OR 06-02 00:17 → ICU 06-02 01:56 → MEDSURG 06-12 22:10
PROVIDERS: Anesthesiology; Hospitalist; Internal Medicine; Student in an Organized Health Care Education/Training Program; Admitting Provider Surgery; Emergency Provider Emergency Medicine; Visit Provider Surgery
PROC: 07TP0ZZ Resection of Spleen, Open Approach (ICD-10-PCS; CPT 49000; principal; 2021-06-02)
PROC: 07TP0ZZ Resection of Spleen, Open Approach (ICD-10-PCS; 2021-06-02)
DX: S36.032A Major laceration of spleen, initial encounter (principal); R57.1 Hypovolemic shock; J15.211 Pneumonia due to Methicillin susceptible Staphylococcus aureus; F10.239 Alcohol dependence with withdrawal, unspecified; D62 Acute posthemorrhagic anemia; G93.40 Encephalopathy, unspecified; F05 Delirium due to known physiological condition; I82.451 Acute embolism and thrombosis of right peroneal vein; V49.9XXA Car occupant (driver) (passenger) injured in unspecified traffic accident, initial encounter; F10.229 Alcohol dependence with intoxication, unspecified; Y90.6 Blood alcohol level of 120-199 mg/100 ml; I95.9 Hypotension, unspecified; L89.152 Pressure ulcer of sacral region, stage 2; E87.6 Hypokalemia; E83.42 Hypomagnesemia
CPT/HCPCS: 12345; 31500; 36415; 36416; 36430; 36556; 36592; 36600; 70450; 70486; 71045; 71260; 72125; 74018; 74177; 76705; 80051; 80053; 80202; 80307; 81001; 82140; 82248; 82330; 82803; 82805; 82962; 83605; 83735; 84100; 85007; 85018; 85025; 85049; 85378; 85384; 85610; 85730; 86403; 86850; 86900; 86920; 86927; 87040; 87070; 87075; 87077; 87186; 87205; 87449; 87635; 87804; 88305; 90471; 90715; 93308; 93970; 94002; 94003; 94640; 94799; 96365; 96366; 96372; 97110; 97116; 97161; 97165; 97530; 97535; 99291; 99292; C1751; C9113; J0330; J0690; J0743; J1644; J1650; J1940; J1956; J2060; J2250; J2270; J2370; J2405; J2543; J2720; J3010; J3370; J3411; J3430; J3475; J3480; J3490; J7030; J7050; P9016; P9017; P9035; P9047; Q9967

== ENCOUNTER → 2021-07-03 09:59 | Outpatient (BNVA) | payer OTHER, SELFPAY | PROVIDERS: PCP Family Medicine; Visit Provider Surgery | DX: Z20.822 Contact with and (suspected) exposure to COVID-19 (principal); L89.159 Pressure ulcer of sacral region, unspecified stage; I82.409 Acute embolism and thrombosis of unspecified deep veins of unspecified lower extremity; Z90.81 Acquired absence of spleen | CPT/HCPCS: 87635 ==

== ENCOUNTER 2021-07-05 08:54 | Day surgery (SDC) | payer OTHER, SELFPAY ==
[2021-07-04 11:00] VITALS: BMI 24.3
[2021-07-05 09:27] VITALS: BP 110/87; PULSE 88; RESP 18; TEMP 36.8; O2SAT 99
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
[2021-07-05] MEDS: sodium chloride 0.9% 1,000 ML 30 ML IV (10:09)
--- NOTE | 2021-07-05 10:20 | W.PM.OPSUD ---
Surgery/Procedure H&P Update DATE OF PROCEDURE: July 05, 2021 DATE H&P PERFORMED: 07/03/21 H&P UPDATE INFORMATION: I have reviewed H&P completed within last 30 days, I have examined patient prior to procedure and No changes to prior documentation PREOP DIAGNOSIS: Sacral and occipital decubitus ulcer PLANNED PROCEDURE: Operation Date: 07/05/21 10:50 Proposed Procedures p Debridement scalp and sacral ulcers 45016/I89.819/I89.159(Not Applicable) - Billy Salazar MD
[2021-07-05] MEDS: lidocaine 2% INJ 20 mL INJECTION (11:01)
--- NOTE | 2021-07-05 11:17 | PM.OP ---
Operative Report Date of procedure: July 05, 2021 Pre-op diagnosis: 1. Sacral decubitus ulcer 2. Occipital decubitus ulcer Post-op diagnosis: 1. Stage III sacral decubitus ulcer measuring 5 x 5 x 1.5 cm 2. Stage II occipital decubitus ulcer measuring 5 x 1 x 0.5 cm Procedure done: 1. Excisional debridement using electrocautery of necrotic skin and subcutaneous tissue on the sacrum measuring 5 x 5 x 1.5 cm 2. Excisional debridement using a 15 blade of necrotic skin and subcutaneous tissue on the occiput measuring 5 x 1 x 0.5 cm Specimens removed/disposition: Debrided tissue for wound cultures Surgeon: Billy Salazar Anesthesia: MAC Condition: stable Disposition: PACU Procedure: The patient was in the operating room and placed in left lateral position under MAC after IV antibiotic had been administered. The area around the sacral wound and the scalp wound was prepped and draped in a sterile manner. Using a 15 blade excisional debridement of necrotic skin and subcutaneous tissue on the scalp was performed resulting in a wound measuring 5 x 1 x 0.5 cm. Wound was irrigated with saline, hemostasis ensured with cautery and covered with antibiotic cream and sterile dressings. Using electrocautery excisional debridement of necrotic skin and subcutaneous tissue was performed on the sacrum resulting in a wound measuring 5 x 5 x 1.5 cm. Wound was irrigated with saline, hemostasis ensured with cautery and packed with 4 x 4 gauze soaked in 1% lidocaine. The wound was covered with ABDs. The patient was transferred to recovery room in stable condition.
[2021-07-05 11:22] VITALS: BP 91/57; PULSE 66; RESP 18; TEMP 36.1; O2SAT 96
[2021-07-05 11:25] VITALS: BP 100/63; PULSE 65; RESP 18; O2SAT 98
[2021-07-05 11:30] VITALS: BP 96/66; PULSE 63; RESP 17; TEMP 36.1; O2SAT 97
[2021-07-05 11:41] VITALS: BP 100/62; PULSE 66; RESP 18; TEMP 36.2; O2SAT 97
[2021-07-05] MEDS: HYDROcodone-acetaminophen 5-325 mg Tablet 1 TAB PO (12:12)
--- NOTE | 2021-07-05 14:31 | ANE.PACU2 ---
Inpatient post-anesthesia follow up: Airway intact: Yes Vital signs: Temperature 97.2 F Pulse Rate 66 Respiratory Rate 18 Blood Pressure 100/62 Pulse Oximetry 97 Oxygen Delivery Me thod Room Air Oxygen Flow Rate 8 Fraction of Inspir ed Oxygen Hydration adequate: Yes Nausea and vomiting: No Pain level: 1 Mental status: Baseline
== END 2021-07-05 12:24 | disposition home or self-care (01) ==
PROVIDERS: PCP Family Medicine; Visit Provider Surgery
PROC: (CPT 11042; principal; 2021-07-05 10:40)
DX: L89.153 Pressure ulcer of sacral region, stage 3 (principal); L89.892 Pressure ulcer of other site, stage 2; Z90.81 Acquired absence of spleen
CPT/HCPCS: 11042; 11045; 87070; 87075; 87205; J0690; J2250; J2704; J3010; J7030

== ENCOUNTER 2021-07-11 13:00 | Outpatient (CLI) | payer OTHER, SELFPAY | END 2021-07-11 13:01 | disposition home or self-care (01) | LOC: WOUND 13:01 | PROVIDERS: PCP Family Medicine; Visit Provider Thoracic Surgery (Cardiothoracic Vascular Surgery) | DX: I96 Gangrene, not elsewhere classified (principal); L89.153 Pressure ulcer of sacral region, stage 3; Z87.891 Personal history of nicotine dependence | CPT/HCPCS: 11042; 11045; 99213; A6250 ==

== ENCOUNTER 2021-07-18 13:32 | Outpatient (CLI) | payer OTHER, SELFPAY | END 2021-07-18 13:33 | disposition home or self-care (01) | LOC: WOUND 13:33 | PROVIDERS: PCP Family Medicine; Visit Provider Thoracic Surgery (Cardiothoracic Vascular Surgery) | DX: I96 Gangrene, not elsewhere classified (principal); L89.153 Pressure ulcer of sacral region, stage 3; Z87.891 Personal history of nicotine dependence | CPT/HCPCS: 11042; 11045 ==

== ENCOUNTER 2021-08-01 09:10 | Outpatient (CLI) | payer OTHER, SELFPAY | END 2021-08-01 09:11 | disposition home or self-care (01) | LOC: WOUND 09:11 | PROVIDERS: PCP Family Medicine; Visit Provider Thoracic Surgery (Cardiothoracic Vascular Surgery) | DX: L89.153 Pressure ulcer of sacral region, stage 3 (principal); Z87.891 Personal history of nicotine dependence | CPT/HCPCS: 11042 ==

== ENCOUNTER 2021-08-08 13:04 | Outpatient (CLI) | payer OTHER, SELFPAY | END 2021-08-08 13:05 | disposition home or self-care (01) | LOC: WOUND 13:05 | PROVIDERS: PCP Family Medicine; Visit Provider Thoracic Surgery (Cardiothoracic Vascular Surgery) | DX: I96 Gangrene, not elsewhere classified (principal); L89.153 Pressure ulcer of sacral region, stage 3; Z87.891 Personal history of nicotine dependence | CPT/HCPCS: 11042; 97597 ==

== ENCOUNTER 2021-08-15 13:13 | Outpatient (CLI) | payer OTHER, SELFPAY | END 2021-08-15 13:14 | disposition home or self-care (01) | LOC: WOUND 13:14 | PROVIDERS: PCP Family Medicine; Visit Provider Thoracic Surgery (Cardiothoracic Vascular Surgery) | DX: I96 Gangrene, not elsewhere classified (principal); L89.153 Pressure ulcer of sacral region, stage 3; Z87.891 Personal history of nicotine dependence | CPT/HCPCS: 11042 ==